=== PATIENT | male | born 1940 | race Caucasian/White ===

== ENCOUNTER → 2017-11-19 03:01 | Outpatient (CLI) | payer MEDICARE, OTHER, SELFPAY | PROVIDERS: PCP Internal Medicine; Visit Provider Dermatology | DX: C84.A0 Cutaneous T-cell lymphoma, unspecified, unspecified site (principal) | CPT/HCPCS: 96912 ==

== ENCOUNTER → 2017-11-22 04:18 | Outpatient (CLI) | payer MEDICARE, OTHER, SELFPAY | PROVIDERS: PCP Internal Medicine; Visit Provider Dermatology | DX: C84.A0 Cutaneous T-cell lymphoma, unspecified, unspecified site (principal) | CPT/HCPCS: 96912 ==

== ENCOUNTER → 2017-11-27 03:12 | Outpatient (CLI) | payer MEDICARE, OTHER, SELFPAY | PROVIDERS: PCP Internal Medicine; Visit Provider Dermatology | DX: C84.A0 Cutaneous T-cell lymphoma, unspecified, unspecified site (principal) | CPT/HCPCS: 96912 ==

== ENCOUNTER → 2017-12-05 02:00 | Outpatient (CLI) | payer MEDICARE, OTHER, SELFPAY | PROVIDERS: PCP Internal Medicine; Visit Provider Dermatology | DX: C84.A0 Cutaneous T-cell lymphoma, unspecified, unspecified site (principal) | CPT/HCPCS: 96912 ==

== ENCOUNTER → 2017-12-11 03:47 | Outpatient (CLI) | payer MEDICARE, OTHER, SELFPAY | PROVIDERS: PCP Internal Medicine; Visit Provider Dermatology | DX: C84.A0 Cutaneous T-cell lymphoma, unspecified, unspecified site (principal) | CPT/HCPCS: 96912 ==

== ENCOUNTER 2017-12-18 03:07 | Outpatient (CLI) | payer MEDICARE, OTHER, SELFPAY | END 2017-12-18 03:27 | PROVIDERS: PCP Internal Medicine; Visit Provider Dermatology | DX: C84.A0 Cutaneous T-cell lymphoma, unspecified, unspecified site (principal) | CPT/HCPCS: 96912 ==

== ENCOUNTER 2017-12-25 02:12 | Outpatient (CLI) | payer MEDICARE, OTHER, SELFPAY | END 2017-12-25 02:32 | PROVIDERS: PCP Internal Medicine; Visit Provider Dermatology | DX: C84.A0 Cutaneous T-cell lymphoma, unspecified, unspecified site (principal) | CPT/HCPCS: 96912 ==

== ENCOUNTER 2018-01-02 03:44 | Outpatient (CLI) | payer MEDICARE, OTHER, SELFPAY | END 2018-01-02 04:04 | PROVIDERS: PCP Internal Medicine; Visit Provider Dermatology | DX: C84.A0 Cutaneous T-cell lymphoma, unspecified, unspecified site (principal) | CPT/HCPCS: 96912 ==

== ENCOUNTER 2018-01-08 02:16 | Outpatient (CLI) | payer MEDICARE, OTHER, SELFPAY | END 2018-01-08 02:36 | PROVIDERS: PCP Internal Medicine; Visit Provider Dermatology | DX: C84.A0 Cutaneous T-cell lymphoma, unspecified, unspecified site (principal) | CPT/HCPCS: 96912 ==

== ENCOUNTER 2018-01-16 02:17 | Outpatient (CLI) | payer MEDICARE, OTHER, SELFPAY | END 2018-01-16 02:37 | PROVIDERS: PCP Internal Medicine; Visit Provider Dermatology | DX: C84.A0 Cutaneous T-cell lymphoma, unspecified, unspecified site (principal) | CPT/HCPCS: 96912 ==

== ENCOUNTER 2018-01-22 02:04 | Outpatient (CLI) | payer MEDICARE, OTHER, SELFPAY | END 2018-01-22 02:24 | PROVIDERS: PCP Internal Medicine; Visit Provider Dermatology | DX: C84.A0 Cutaneous T-cell lymphoma, unspecified, unspecified site (principal) | CPT/HCPCS: 96912 ==

== ENCOUNTER 2018-02-05 01:22 | Outpatient (CLI) | payer MEDICARE, OTHER, SELFPAY | END 2018-02-05 01:42 | PROVIDERS: PCP Internal Medicine; Visit Provider Dermatology | DX: C84.A0 Cutaneous T-cell lymphoma, unspecified, unspecified site (principal) | CPT/HCPCS: 96912 ==

== ENCOUNTER 2018-02-13 02:17 | Outpatient (CLI) | payer MEDICARE, OTHER, SELFPAY | END 2018-02-13 02:37 | PROVIDERS: PCP Internal Medicine; Visit Provider Dermatology | DX: R69 Illness, unspecified (principal) ==

== ENCOUNTER 2018-02-19 03:05 | Outpatient (CLI) | payer MEDICARE, OTHER, SELFPAY | END 2018-02-19 03:25 | PROVIDERS: PCP Internal Medicine; Visit Provider Dermatology | DX: C84.A0 Cutaneous T-cell lymphoma, unspecified, unspecified site (principal) | CPT/HCPCS: 96912 ==

== ENCOUNTER 2018-03-05 10:34 | Outpatient (CLI) | payer MEDICARE, OTHER, SELFPAY | END 2018-03-05 10:54 | LOC: PRC 10:34 → PUVA 10:37 | PROVIDERS: PCP Internal Medicine; Visit Provider Dermatology | DX: C84.A0 Cutaneous T-cell lymphoma, unspecified, unspecified site (principal) | CPT/HCPCS: 96912 ==

== ENCOUNTER 2018-03-19 01:33 | Outpatient (CLI) | payer MEDICARE, OTHER, SELFPAY | END 2018-03-19 01:53 | PROVIDERS: PCP Internal Medicine; Visit Provider Dermatology | DX: C84.A0 Cutaneous T-cell lymphoma, unspecified, unspecified site (principal) | CPT/HCPCS: 96912 ==

== ENCOUNTER 2018-04-02 02:37 | Outpatient (CLI) | payer MEDICARE, OTHER, SELFPAY | END 2018-04-02 02:57 | PROVIDERS: PCP Internal Medicine; Visit Provider Dermatology | DX: R69 Illness, unspecified (principal) | CPT/HCPCS: 96912 ==

== ENCOUNTER 2018-04-15 02:25 | Outpatient (CLI) | payer MEDICARE, OTHER, SELFPAY | END 2018-04-15 02:45 | PROVIDERS: PCP Internal Medicine; Visit Provider Dermatology | DX: C84.A0 Cutaneous T-cell lymphoma, unspecified, unspecified site (principal) | CPT/HCPCS: 96912 ==

== ENCOUNTER 2018-04-29 02:41 | Outpatient (CLI) | payer MEDICARE, OTHER, SELFPAY | END 2018-04-29 03:01 | PROVIDERS: PCP Internal Medicine; Visit Provider Dermatology | DX: C84.A0 Cutaneous T-cell lymphoma, unspecified, unspecified site (principal) | CPT/HCPCS: 96912 ==

== ENCOUNTER 2018-05-13 11:06 | Outpatient (CLI) | payer MEDICARE, OTHER, SELFPAY | END 2018-05-13 11:26 | PROVIDERS: PCP Internal Medicine; Visit Provider Dermatology | DX: C84.A0 Cutaneous T-cell lymphoma, unspecified, unspecified site (principal); Z53.8 Procedure and treatment not carried out for other reasons ==

== ENCOUNTER 2018-05-20 02:23 | Outpatient (CLI) | payer MEDICARE, OTHER, SELFPAY | END 2018-05-20 02:43 | PROVIDERS: PCP Internal Medicine; Visit Provider Dermatology | DX: C84.A0 Cutaneous T-cell lymphoma, unspecified, unspecified site (principal) | CPT/HCPCS: 96912 ==

== ENCOUNTER 2018-06-10 02:06 | Outpatient (CLI) | payer MEDICARE, OTHER, SELFPAY | END 2018-06-10 02:26 | PROVIDERS: PCP Internal Medicine; Visit Provider Dermatology | DX: C84.A0 Cutaneous T-cell lymphoma, unspecified, unspecified site (principal) | CPT/HCPCS: 96912 ==

== ENCOUNTER 2018-07-01 01:56 | Outpatient (CLI) | payer MEDICARE, OTHER, SELFPAY | END 2018-07-01 02:16 | PROVIDERS: PCP Internal Medicine; Visit Provider Dermatology | DX: C84.A0 Cutaneous T-cell lymphoma, unspecified, unspecified site (principal) | CPT/HCPCS: 96912 ==

== ENCOUNTER 2018-07-22 02:24 | Outpatient (CLI) | payer MEDICARE, OTHER, SELFPAY | END 2018-07-22 02:44 | PROVIDERS: PCP Internal Medicine; Visit Provider Dermatology | DX: C84.A0 Cutaneous T-cell lymphoma, unspecified, unspecified site (principal) | CPT/HCPCS: 96912 ==

== ENCOUNTER 2018-08-29 00:56 | Outpatient (CLI) | payer MEDICARE, OTHER, SELFPAY ==
--- NOTE | 2018-08-29 09:56 | DI.MRI_ITS ---
SYMPTOM/DIAGNOSIS: LUMBAR SPINAL STENOSIS WITH NEUROGENIC CLAUDICATION LUMBOSACRAL SPINE MRI: MRI examination of the lumbosacral spine was performed according to the usual protocol. The examination is compared with previous examination of 10/04/16. Note is made of a right convex lumbar scoliosis. There is disc space loss of height throughout the lumbar region. The conus medullaris appears intact and the lower thoracic spinal canal appears well maintained. Tiny nodular focus is noted associated with the conus at the T 12 level, unchanged from the previous examination. This is seen only on the sagittal images and measures roughly 6 mm. in diameter. The lack of changeover operator a 2 year period would suggest that this is a benign finding, etiologies could include Schwannoma or other benign neural tumor. At the L 1-2 level, there is mild decrease in AP diameter of the spinal canal and there is mild narrowing of the left lateral recess secondary to facet and endplate hypertrophy. At the L 2-3 level, a previously noted left sided disc herniation is again noted which is less prominent than on the previous examination. This projects below the disc level as previously noted. At L 3-4, there is borderline central canal spinal stenosis with no disc herniation. At L 4-5, there is borderline central canal spinal stenosis without evidence of disc herniation. At L 5-S 1, there is no evidence of disc herniation or central canal spinal stenosis. Neural foramina appear fairly well maintained throughout. Apart from the aforementioned decreased prominence of the left sided disc herniation/extrusion at L 2-3, there has been no other significant change in appearance. CONCLUSION: Multi level facet and endplate hypertrophy. Interval decrease in size of left sided disc herniation/extrusion at L 2-3 since 10/04/16. Incidental 6 mm. indeterminate nodule of the conus at the T 12 level as described above, this appears stable. Additional evaluation with full MR evaluation of the lower thoracic spine including post contrast imaging could be obtained if clinically appropriate.
== END 2018-08-29 01:16 ==
PROVIDERS: PCP Internal Medicine; Visit Provider Nurse Practitioner Family
DX: M48.07 Spinal stenosis, lumbosacral region (principal); M47.817 Spondylosis without myelopathy or radiculopathy, lumbosacral region; M51.26 Other intervertebral disc displacement, lumbar region
CPT/HCPCS: 72148

== ENCOUNTER 2018-09-24 11:26 | Outpatient (REF) | payer MEDICARE, OTHER, SELFPAY ==
[2018-09-24 18:33] LABS: Anion Gap 10.1 mmol/L (3-11); BUN 22 mg/dL (7-18); CO2 26.9 mmol/L (21.0-32.0); Calcium 9.3 mg/dL (8.5-10.1); Calculated LDL 88; Chloride 103 mmol/L (98-107); Cholesterol 164 mg/dL (50-200); Estimated GFR 58.86 (mL/min/1.73m2); Glucose 93 mg/dL (70-100); HDL Cholesterol 67 mg/dL (40-60); Potassium 4.1 mmol/L (3.5-5.1); Sodium 140 mmol/L (136-145); Triglyceride 47 mg/dL (30-150)
== END 2018-09-24 11:46 ==
LOC: LBO 11:26
PROVIDERS: PCP Internal Medicine; Visit Provider Internal Medicine
DX: E78.00 Pure hypercholesterolemia, unspecified (principal); I10 Essential (primary) hypertension
CPT/HCPCS: 80048; 80061; 83721

== ENCOUNTER 2018-09-25 09:19 | Outpatient (CLI) | payer MEDICARE, OTHER, SELFPAY ==
--- NOTE | 2018-09-25 06:00 | DI.RAD_ITS ---
SYMPTOM/DIAGNOSIS: LUMBAR RADICULOPATHY, LUMBAR EPIDURAL STEROID INJECTION C-ARM: Fluoroscopy Time: 61.0sec, 17.83mgy Fluoroscopy was utilized by Dr. Zendejas during the performance of a lumbar epidural steroid injection. Please refer to the procedure report for complete details.
[2018-09-25 09:54] VITALS: BP 126/71; PULSE 67; RESP 16; TEMP 36.4; O2SAT 96
[2018-09-25] MEDS: Omnipaque 240 MG/ML 50 ML BTL IJ (10:31)
--- NOTE | 2018-09-25 10:31 | PDOC.PAIN ---
Pain Clinic Procedure Note Current Active Problems Problem Status Onset Spinal stenosis Chronic Epidural Steroid Injection Procedure Note COMMENTS: patient has back and right lower extremity pain. MATTHEW STILL has been referred to the [facility] for lumbar epidural steroid injection. The patient was greeted by the nurse who verified patients name and . Patient was then taken to the fluoroscopy suite. The patient was interviewed and the medial record reviewed. There were no medical, pharmacologic, radiographic, or other structural contraindications to attempting fluoroscopically guided lumbar epidural steroid injection. Risks and expected side effects as well as potential benefits of the procedure were reviewed and voiced concerns expressed. The patient consent form was signed and witnessed. Standard patient time-out procedure was performed. The patient was placed in the prone position on the fluoroscopy table and automated blood pressure cuff and pulse oximeter applied. The skin entry point for entering/approaching the epidural space by a {L5-S1} and marked. Following thorough chlorhexadine preparation of the skin and draping and 1% lidocaine infiltration of the skin entry point and subcutaneous tissues, a 17 gauge Touhy needle was placed under fluoroscopic guidance and with loss of resistance technique into the epidural space. Needle tip placement and depth were aided and confirmed by fluoroscopy. There was no paresthesia or return of blood or CSF through the needle. 1 cc's of Omnipaque 240 was injected with clear epidural spread confirmed with fluoroscopy. 80mg depomedrol was injected. There was not any unusual discomfort expressed by MATTHEW STILL. Patient's vital signs were stable throughout the procedure and were as recorded in nursing records. Follow up plans and appointments were discussed with patient. Post procedure instruction was given as documented in nursing records and having met discharge criteria and was discharged from the [facility]. COMMENTS: follow-up as needed. He gets good relief that lasts for several months it can be repeated otherwise he will follow-up with Kathryn have the office
[2018-09-25] MEDS: methylPREDNISolone ACETATE 40 MG/ML VIAL IJ (10:32)
[2018-09-25 10:42] VITALS: BP 144/90; PULSE 61; RESP 14; O2SAT 98
== END 2018-09-25 09:39 ==
PROVIDERS: PCP Internal Medicine; Visit Provider Anesthesiology Pain Medicine
DX: M48.061 Spinal stenosis, lumbar region without neurogenic claudication (principal)
CPT/HCPCS: 62323; 72100; J1030; Q9967

== ENCOUNTER 2018-12-05 12:00 | Outpatient (CLI) | payer MEDICARE, OTHER, SELFPAY ==
--- NOTE | 2018-12-05 06:00 | DI.RAD_ITS ---
SYMPTOM/DIAGNOSIS: LUMBAR EPIDURAL STEROID INJECTION, LUMBAR RADICULOPATHY C-ARM: Fluoroscopy Time: 15.2 seconds Fluoroscopy was utilized by Dr. Nation during the performance of a lumbar epidural steroid injection. Please refer to the procedure report for complete details.
[2018-12-05 12:06] VITALS: BP 127/76; PULSE 69; RESP 16; TEMP 36.3; O2SAT 96
[2018-12-05] MEDS: Omnipaque 240 MG/ML 50 ML BTL IJ (12:50)
[2018-12-05] MEDS: methylPREDNISolone ACETATE 40 MG/ML VIAL IM (12:52)
[2018-12-05 12:54] VITALS: BP 132/78; PULSE 73; RESP 19; O2SAT 97
--- NOTE | 2018-12-05 13:10 | PDOC.PAIN_ITS ---
Pain Clinic Procedure Note Current Active Problems Problem Status Onset Lumbar radicular pain Lumbar Epidural Steroid Injection Procedure Note COMMENTS: Great relief with previous LESIs MATTHEW STILL has been referred to the [facility] for lumbar epidural steroid injection. The patient was greeted by the nurse who verified patients name and . Patient was then taken to the fluoroscopy suite. The patient was interviewed and the medial record reviewed. There were no medi jessica, pharmacologic, radiographic, or other structural contraindications to attempting fluoroscopically guided lumbar epidural steroid injection. Risks and expected side effects as well as potential benefits of the procedure were reviewed and voiced concerns expressed. The patient consent form was signed and witnessed. Standard patient time-out procedure was performed. The patient was placed in the prone position on the fluoroscopy table and automated blood pressure cuff and pulse oximeter applied. The skin entry point for entering/approaching the epidural space at L5-S1 on the right and marked. Following thorough chlorhexadine preparation of the skin and draping and 1% lidocaine infiltration of the skin entry point and subcutaneous tissues, a 18 g auge Touhy needle was placed under fluoroscopic guidance and with loss of resistance technique into the epidural space. Needle tip placement and depth were aided and confirmed by fluoroscopy. There was no paresthesia or return of blood or CSF through the needle. 1 cc's of Omnipaque 240 was injected with clear epidural spread confirmed with fluoroscopy. 80mg depomedrol was injected. There was not any unusual discomfort expressed by MATTHEW STILL. Patient's vital signs were stable throughout the procedure and were as recorded in nursing records. Follow up plans and appointments were discussed with patient. Post procedure instruction was given as documented in nursing records and having met discharge criteria and was discharged from the [facility]. COMMENTS: If this procedure is helpful, it can be completed up to 3 times per 12 months.
== END 2018-12-05 12:20 ==
PROVIDERS: PCP Internal Medicine; Visit Provider Preventive Medicine Occupational Medicine
DX: M54.16 Radiculopathy, lumbar region (principal)
CPT/HCPCS: 62323; 72100; J1030; Q9967

== ENCOUNTER → 2019-02-25 10:45 | Outpatient (BNVA) | payer MEDICARE, OTHER, SELFPAY | PROVIDERS: PCP Internal Medicine; Referring Provider Internal Medicine; Visit Provider Nurse Practitioner Gerontology | DX: N40.1 Benign prostatic hyperplasia with lower urinary tract symptoms (principal); R39.15 Urgency of urination; R35.1 Nocturia; R35.0 Frequency of micturition; Z80.42 Family history of malignant neoplasm of prostate; I10 Essential (primary) hypertension | CPT/HCPCS: 51798; 99204; 99215 ==

== ENCOUNTER 2019-05-06 08:46 | Outpatient (CLI) | payer MEDICARE, OTHER, SELFPAY ==
--- NOTE | 2019-05-06 08:47 | PDOC.PAIN ---
Pain Clinic Procedure Note Procedure Note Procedure Note: Lumbar Epidural Steroid Injection Procedure Note Pre-operative diagnosis: lumbar radiculopathy Post-operative diagnosis: same as above Comment: patient has had sustained pain relief from prior lumbar epidural steroid injections, he presents for repeat LESI. MATTHEW STILL has been referred to the [facility] for lumbar epidural steroid injection. The patient was greeted by the nurse who verified patients name and . Patient was then taken to the fluoroscopy suite. The patient was interviewed and the medial record reviewed. There were no medical, pharmacologic, radiographic, or other structural contraindications to attempting fluoroscopically guided lumbar epidural steroid injection. Risks and expected side effects as well as potential benefits of the procedure were reviewed and voiced concerns expressed. The patient consent form was signed and witnessed. Standard patient time-out procedure was performed. The patient was placed in the prone position on the fluoroscopy table and automated blood pressure cuff and pulse oximeter applied. The skin entry point for entering/approaching the epidural space L5-S1 and marked. Following thorough chlorhexadine preparation of the skin and draping and 1% lidocaine infiltration of the skin entry point and subcutaneous tissues, a 18 gauge Touhy needle was placed under fluoroscopic guidance and with loss of resistance technique into the epidural space. Needle tip placement and depth were aided and confirmed by fluoroscopy. There was no paresthesia or return of blood or CSF through the needle. 1 cc's of Omnipaque 240 was injected with clear epidural spread confirmed with fluoroscopy. 80mg depomedrol was injected. This was followed by 0.5cc of preservative free 1% lidocaine and 1cc of preservative free normal saline. There was not any unusual discomfort expressed by MATTHEW STILL. Patient's vital signs were stable throughout the procedure and were as recorded in nursing records. Follow up plans and appointments were discussed with patient. Post procedure instruction was given as documented in nursing records and having met discharge criteria and was discharged from the [facility]. COMMENTS: If this procedure is helpful, it can be completed up to 3 times per 12 months. I personally performed the entire procedure. Curt Carias MD Pain Management
[2019-05-06 08:56] VITALS: BP 129/74; PULSE 64; RESP 18; TEMP 36.1; O2SAT 99
[2019-05-06 09:28] VITALS: BP 141/85; PULSE 61; RESP 16; O2SAT 98
[2019-05-06] MEDS: methylPREDNISolone ACETATE 80 MG/ML VIAL IJ (09:36)
[2019-05-06] MEDS: Omnipaque 240 MG/ML 50 ML BTL IJ (09:36)
--- NOTE | 2019-05-06 10:19 | DI.RAD_ITS ---
EXAM: XR PAIN CLINIC LUMBAR SP 2V CLINICAL HISTORY: Dx: Lumbar Radiculopathy TECHNIQUE: 2D and realtime digital imaging was performed. Fluoroscopy was provided in the OR COMPARISON: No exams were available for comparison FINDINGS: C-arm fluoroscopy was utilized by Dr. Carias during reported epidural steroid injection. Hard copy shows midline injection at the L5-S1 level in the epidural space Fluoro time: 16.4 sec. Fluoro dose 5.87 mGy IMPRESSION:
== END 2019-05-06 09:06 ==
PROVIDERS: PCP Internal Medicine; Visit Provider Internal Medicine
DX: M54.16 Radiculopathy, lumbar region (principal)
CPT/HCPCS: 62321; 72100; J1040; Q9967

== ENCOUNTER → 2019-05-16 08:43 | Outpatient (BNVA) | payer MEDICARE, OTHER, SELFPAY | PROVIDERS: PCP Internal Medicine; Referring Provider Internal Medicine; Visit Provider Urology | DX: R35.0 Frequency of micturition (principal); N40.0 Benign prostatic hyperplasia without lower urinary tract symptoms | CPT/HCPCS: 99213 ==

== ENCOUNTER 2019-05-16 10:53 | Outpatient (CLI) | payer MEDICARE, OTHER, SELFPAY ==
[2019-05-16 11:07] LABS: Bilirubin Negative (Negative); Blood Negative (Negative); Clarity Clear (Clear); Glucose Negative (Negative); Ketones Negative (Negative); Leukocyte Esterase Negative (Negative); Nitrite Negative (Negative); Specific Gravity 1.025 (1.005-1.025); Urobilinogen 0.2 EU/dL (Up TO 0.2)
== END 2019-05-16 11:13 ==
PROVIDERS: PCP Internal Medicine; Visit Provider Urology
DX: R39.9 Unspecified symptoms and signs involving the genitourinary system (principal)
CPT/HCPCS: 99213; 81003

== ENCOUNTER 2019-10-14 08:44 | Outpatient (CLI) | payer MEDICARE, OTHER, SELFPAY ==
[2019-10-14 08:51] VITALS: BP 138/81; PULSE 61; RESP 17; TEMP 36.2; O2SAT 98
[2019-10-14] MEDS: methylPREDNISolone ACETATE 80 MG/ML VIAL IJ (09:25)
[2019-10-14] MEDS: Omnipaque 240 MG/ML 50 ML BTL IJ (09:25)
[2019-10-14 09:28] VITALS: BP 147/86; PULSE 61; RESP 18; O2SAT 98
--- NOTE | 2019-10-14 09:29 | PDOC.PAIN ---
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 He has received sustained pain relief from prior lumbar epidural steroid injections and he is here for a repeat injection. Levon Carter has been referred to the [facility] for lumbar epidural steroid injection. The patient was greeted by the nurse who verified patients name and . Patient was then taken to the fluoroscopy suite. The patient was interviewed and the medial record reviewed. There were no medical, pharmacologic, radiographic, or other structural contraindications to attempting fluoroscopically guided lumbar epidural steroid injection. Risks and expected side effects as well as potential benefits of the procedure were reviewed and voiced concerns expressed. The patient consent form was signed and witnessed. Standard patient time-out procedure was performed. The patient was placed in the prone position on the fluoroscopy table and automated blood pressure cuff and pulse oximeter applied. The skin entry point for entering/approaching the epidural space by a L5-S1 and marked. Following thorough chlorhexadine preparation of the skin and draping and 1% lidocaine infiltration of the skin entry point and subcutaneous tissues, a 18 gauge Touhy needle was placed under fluoroscopic guidance and with loss of resistance technique into the epidural space. Needle tip placement and depth were aided and confirmed by fluoroscopy. There was no paresthesia or return of blood or CSF through the needle. 1 cc's of Omnipaque 240 was injected with clear epidural spread confirmed with fluoroscopy. 80mg depomedrol was injected. This is followed by 0.5cc of preservative free 1% lidocaine and 1cc of preservatie free normal saline. There was not any unusual discomfort expressed by Levon Carter. Patient's vital signs were stable throughout the procedure and were as recorded in nursing records. Follow up plans and appointments were discussed with patient. Post procedure instruction was given as documented in nursing records and having met discharge criteria and was discharged from the [facility]. COMMENTS: If this procedure is helpful, it can be completed up to 3 times per 12 months. I personally performed the entire procedure. Curt Carias MD Pain Management
--- NOTE | 2019-10-14 09:30 | DI.RAD_ITS ---
EXAM: XR PAIN CLINIC LUMBAR SP 2V CLINICAL HISTORY: Dx Lumbar Radiculopathy TECHNIQUE: 2D and realtime digital imaging was performed. CONTRAST MATERIAL: Refer to procedure report. COMPARISON: No exams were available for comparison FINDINGS: Fluoroscopy was provided for Dr. Carias during the performance of a lumbar epidural steroid injection. Please refer to the procedure report for complete details. Fluoro time: 23.1 seconds IMPRESSION:
== END 2019-10-14 09:04 ==
PROVIDERS: PCP Internal Medicine; Visit Provider Internal Medicine
DX: M54.16 Radiculopathy, lumbar region (principal)
CPT/HCPCS: 62323; 72100; J1040; Q9967

== ENCOUNTER 2019-10-23 01:18 | Outpatient (CLI) | payer MEDICARE, OTHER, SELFPAY ==
[2019-10-23 17:07] LABS: Anion Gap 10.6 mmol/L (3-11); BUN 27 mg/dL (7-18); CO2 25.4 mmol/L (21.0-32.0); CREATININE 1.23 mg/dL (0.70-1.30); Calcium 9.3 mg/dL (8.5-10.1); Calculated LDL 67 mg/dL (<100); Chloride 102 mmol/L (98-107); Cholesterol 156 mg/dL (<200); Estimated GFR 57.06 (mL/min/1.73m2); Glucose 93 mg/dL (74-106); HDL Cholesterol 80 mg/dL (40-60); Potassium 3.9 mmol/L (3.5-5.1); Sodium 138 mmol/L (136-145); Triglyceride 48 mg/dL (<150)
== END 2019-10-23 01:38 ==
PROVIDERS: PCP Internal Medicine; Visit Provider Internal Medicine
DX: I10 Essential (primary) hypertension (principal); E78.00 Pure hypercholesterolemia, unspecified
CPT/HCPCS: 36415; 80048; 80061

== ENCOUNTER 2020-02-24 12:45 | Outpatient (CLI) | payer MEDICARE, OTHER, SELFPAY ==
[2020-02-24 12:54] VITALS: BP 134/66; PULSE 60; RESP 20; TEMP 36.7; O2SAT 97
[2020-02-24] MEDS: methylPREDNISolone ACETATE 80 MG/ML VIAL IJ (13:26)
[2020-02-24] MEDS: Omnipaque 240 MG/ML 50 ML BTL IJ (13:30)
--- NOTE | 2020-02-24 13:32 | DI.RAD_ITS ---
EXAM: XR PAIN CLINIC LUMBAR SP 2V CLINICAL HISTORY: Dx: Lumbar Radiculopathy TECHNIQUE: 2D and realtime digital imaging was performed. CONTRAST MATERIAL: Refer to procedure report. COMPARISON: No exams were available for comparison FINDINGS: Fluoroscopy was provided for Dr. Carias during the performance of a lumbar epidural steroid injection. Please refer to the procedure report for complete details. Fluoro time: 35.2 seconds IMPRESSION:
--- NOTE | 2020-02-24 13:34 | PDOC.PAIN ---
Pain Clinic Procedure Note Procedure Note Procedure Note: Lumbar Epidural Steroid Injection Procedure Note pre-operative diagnosis: lumbar radiculopathy COMMENTS: patient reports 4 months and 1 week of excellent pain relief since his last lumbar epidural steroid injection. he is here for a repeat injection. MATTHEW STILL has been referred to the [facility] for lumbar epidural steroid injection. The patient was greeted by the nurse who verified patients name and . Patient was then taken to the fluoroscopy suite. The patient was interviewed and the medial record reviewed. There were no medical, pharmacologic, radiographic, or other structural contraindications to attempting fluoroscopically guided lumbar epidural steroid injection. Risks and expected side effects as well as potential benefits of the procedure were reviewed and voiced concerns expressed. The patient consent form was signed and witnessed. Standard patient time-out procedure was performed. The patient was placed in the prone position on the fluoroscopy table and automated blood pressure cuff and pulse oximeter applied. The skin entry point for entering/approaching the epidural space by a L5-S1 and marked. Following thorough chlorhexadine preparation of the skin and draping and 1% lidocaine infiltration of the skin entry point and subcutaneous tissues, a 18 gauge Touhy needle was placed under fluoroscopic guidance and with loss of resistance technique into the epidural space. Needle tip placement and depth were aided and confirmed by fluoroscopy. There was no paresthesia or return of blood or CSF through the needle. 1 cc's of Omnipaque 240 was injected with clear epidural spread confirmed with fluoroscopy. 80mg depomedrol was injected. There was not any unusual discomfort expressed by MATTHEW STILL. Patient's vital signs were stable throughout the procedure and were as recorded in nursing records. Follow up plans and appointments were discussed with patient. Post procedure instruction was given as documented in nursing records and having met discharge criteria and was discharged from the [facility]. COMMENTS: If this procedure is helpful, it can be completed up to 3 times per 12 months. Curt Carias MD Pain Management
[2020-02-24 13:38] VITALS: BP 137/81; PULSE 61; RESP 22; O2SAT 100
== END 2020-02-24 13:05 ==
PROVIDERS: PCP Internal Medicine; Visit Provider Internal Medicine
DX: M54.16 Radiculopathy, lumbar region (principal)
CPT/HCPCS: 62323; 72100; J1040; Q9967

== ENCOUNTER → 2020-06-11 07:56 | Outpatient (BNVA) | payer MEDICARE, OTHER, SELFPAY | PROVIDERS: PCP Internal Medicine; Referring Provider Internal Medicine; Visit Provider Urology | DX: N40.1 Benign prostatic hyperplasia with lower urinary tract symptoms (principal); R39.15 Urgency of urination | CPT/HCPCS: 81003; 99214 ==

== ENCOUNTER 2020-07-01 11:35 | Outpatient (CLI) | payer MEDICARE, OTHER, SELFPAY ==
--- NOTE | 2020-07-01 06:00 | DI.RAD_ITS ---
EXAM: XR PAIN CLINIC LUMBAR SP 2V CLINICAL HISTORY: Dx: Lumbar Radiculopathy TECHNIQUE: 2D and realtime digital imaging was performed. CONTRAST MATERIAL: None. COMPARISON: No exams were available for comparison FINDINGS: Fluoroscopy was provided during pain management therapy L5-S1 epidural injection. See procedure repo rt for further details. Fluoro time: 17.4 seconds Cumulative dose: 4.80 mGy IMPRESSION:
[2020-07-01 11:43] VITALS: BP 134/73; PULSE 58; RESP 17; TEMP 36.7; O2SAT 96
[2020-07-01] MEDS: methylPREDNISolone ACETATE 80 MG/ML VIAL IJ (12:13)
[2020-07-01] MEDS: Omnipaque 240 MG/ML 50 ML BTL IJ (12:13)
[2020-07-01 12:20] VITALS: BP 152/72; PULSE 66; RESP 18; O2SAT 98
--- NOTE | 2020-07-01 12:23 | PDOC.PAIN ---
Pain Clinic Procedure Note Procedure Note Procedure Note: Date of service: July 01, 2020 Lumbar Epidural Steroid Injection Procedure Note COMMENTS: He has done well with these in the past , 10/14/19, and 02/24/20), getting about 3-4 months of relief with each injection. I did review his 08/29/2018 lumbar spine MRI. His low back and leg pain is mostly right sided. Dx: Lumbosacral radiculopathy MATTHEW STILL has been referred to the [facility] for lumbar epidural steroid injection. The patient was greeted by the nurse who verified patients name and . Patient was then taken to the fluoroscopy suite. The patient was interviewed and the medial record reviewed. There were no medical, pharmacologic, radiographic, or other structural contraindications to attempting fluoroscopically guided lumbar epidural steroid injection. Risks and expected side effects as well as potential benefits of the procedure were reviewed and voiced concerns expressed. The patient consent form was signed and witnessed. Standard patient time-out procedure was performed. The patient was placed in the prone position on the fluoroscopy table and automated blood pressure cuff and pulse oximeter applied. The skin entry point for entering/approaching the epidural space at L5-S1 and marked. Following thorough chlorhexadine preparation of the skin and draping and 1% lidocaine infiltration of the skin entry point and subcutaneous tissues, a 18 gauge Touhy needle was placed under fluoroscopic guidance and with loss of resistance technique into the epidural space. Needle tip placement and depth were aided and confirmed by fluoroscopy. There was no paresthesia or return of blood or CSF through the needle. 1 cc's of Omnipaque 240 was injected with clear epidural spread confirmed with fluoroscopy. 80mg depomedrol was injected. There was not any unusual discomfort expressed by MATTHEW STILL. Patient's vital signs were stable throughout the procedure and were as recorded in nursing records. Follow up plans and appointments were discussed with patient. Post procedure instruction was given as documented in nursing records and having met discharge criteria and was discharged from the [facility]. COMMENTS: If this procedure is helpful, it can be completed up to 3 times per 12 months. Jameel Nation DO, MPH Pain Management
== END 2020-07-01 11:36 | disposition home or self-care (01) ==
PROVIDERS: PCP Internal Medicine; Visit Provider Preventive Medicine Occupational Medicine
DX: M54.17 Radiculopathy, lumbosacral region (principal)
CPT/HCPCS: 62323; 72100; J1040; Q9967

== ENCOUNTER 2020-10-19 08:47 | Outpatient (CLI) | payer MEDICARE, OTHER, SELFPAY ==
--- NOTE | 2020-10-19 07:00 | DI.RAD_ITS ---
Exam(s) XR PAIN CLINIC LUMBAR SP 2V EXAM: XR PAIN CLINIC LUMBAR SP 2V CLINICAL HISTORY: Dx: Lumbar Radiculopathy TECHNIQUE: 2D and realtime digital imaging was performed. CONTRAST MATERIAL: Refer to procedure report. COMPARISON: No exams were available for comparison FINDINGS: Fluoroscopy was provided for Dr. Carias during the performance of a lumbar epidural steroid injection. Please refer to the procedure report for complete details. Ka,r=5.15 mGy IMPRESSION:
--- NOTE | 2020-10-19 09:10 | PDOC.PAIN ---
Pain Clinic Procedure Note Procedure Note Procedure Note: Date of service: October 19, 2020 Lumbar Epidural Steroid Injection Procedure Note COMMENTS: patient has lumbar radiculopathy that has been managed with interval lumbar epidural steroid injections since 2019. Each LESI provides approximately 3-4 months of excellent pain relief and he receives no more than 3 injections per 12 months period. Most recent MRI L spine was done in 08/29/2018, and his symptoms has remained unchanged with back pain with radiating right leg pain. His last injection was in 06/2020. Pre-operative diagnosis: Lumbosacral radiculopathy Post-operative diagnosis: same as above MATTHEW STILL has been referred to the [facility] for lumbar epidural steroid injection. The patient was greeted by the nurse who verified patients name and . Patient was then taken to the fluoroscopy suite. The patient was interviewed and the medial record reviewed. There were no medical, pharmacologic, radiographic, or other structural contraindications to attempting fluoroscopically guided lumbar epidural steroid injection. Risks and expected side effects as well as potential benefits of the procedure were reviewed and voiced concerns expressed. The patient consent form was signed and witnessed. Standard patient time-out procedure was performed. The patient was placed in the prone position on the fluoroscopy table and automated blood pressure cuff and pulse oximeter applied. The skin entry point for entering/approaching the epidural space at L5-S1 and marked. Following thorough chlorhexadine preparation of the skin and draping and 1% lidocaine infiltration of the skin entry point and subcutaneous tissues, a 18 gauge Touhy needle was placed under fluoroscopic guidance and with loss of resistance technique into the epidural space. Needle tip placement and depth were aided and confirmed by fluoroscopy. There was no paresthesia or return of blood or CSF through the needle. 1 cc's of Omnipaque 240 was injected with clear epidural spread confirmed with fluoroscopy. 80mg depomedrol was injected. There was not any unusual discomfort expressed by MATTHEW STILL. Patient's vital signs were stable throughout the procedure and were as recorded in nursing records. Follow up plans and appointments were discussed with patient. Post procedure instruction was given as documented in nursing records and having met discharge criteria and was discharged from the [facility]. COMMENTS: If this procedure is helpful, it can be completed up to 3 times per 12 months. Pre-procedure vAS score 6/10, post-procedure VAS score 1/10 Curt Carias MD Pain Management
[2020-10-19 09:15] VITALS: BP 136/81; PULSE 57; RESP 18; TEMP 36.6; O2SAT 98
[2020-10-19] MEDS: methylPREDNISolone ACETATE 80 MG/ML VIAL IJ (09:41)
[2020-10-19] MEDS: Omnipaque 240 MG/ML 50 ML BTL IJ (09:41)
[2020-10-19 09:49] VITALS: BP 146/84; PULSE 57; RESP 16; O2SAT 99
== END 2020-10-19 08:48 | disposition home or self-care (01) ==
LOC: PC 08:48
PROVIDERS: PCP Internal Medicine; Visit Provider Internal Medicine
DX: M54.17 Radiculopathy, lumbosacral region (principal)
CPT/HCPCS: 62323; 72100; J1040; Q9967

== ENCOUNTER 2021-01-28 02:47 | Outpatient (CLI) | payer MEDICARE, OTHER, SELFPAY ==
[2021-01-28 17:03] LABS: Anion Gap 6.9 mmol/L (3-11); BUN 25 mg/dL (7-18); CO2 31.1 mmol/L (21.0-32.0); CREATININE 1.2 mg/dL (0.70-1.30); Calcium 9.2 mg/dL (8.5-10.1); Calculated LDL 77 mg/dL (<100); Chloride 103 mmol/L (98-107); Cholesterol 158 mg/dL (<200); Glucose 82 mg/dL (74-106); HDL Cholesterol 72 mg/dL (40-60); Sodium 141 mmol/L (136-145); Triglyceride 45 mg/dL (<150)
== END 2021-01-28 02:48 | disposition home or self-care (01) ==
LOC: LBO 02:47
PROVIDERS: PCP Internal Medicine; Visit Provider Internal Medicine
DX: E78.00 Pure hypercholesterolemia, unspecified (principal); I10 Essential (primary) hypertension
CPT/HCPCS: 36415; 80048; 80061

== ENCOUNTER 2021-03-17 08:32 | Outpatient (CLI) | payer MEDICARE, OTHER, SELFPAY ==
--- NOTE | 2021-03-17 06:00 | DI.RAD_ITS ---
Exam(s) XR PAIN CLINIC LUMBAR SP 2V EXAM: XR PAIN CLINIC LUMBAR SP 2V CLINICAL HISTORY: DX: lumbar radiculopathy TECHNIQUE: 2D and realtime digital imaging was performed. Radiologist not present. CONTRAST MATERIAL: None. COMPARISON: No exams were available for comparison FINDINGS: Fluoroscopy was provided for pain management therapy. Please refer to procedure report or details. Cumulative dose: Ka,r=6.06 mGy IMPRESSION: RADIATION DOSE DELIVERED:
[2021-03-17 08:41] VITALS: BP 134/82; PULSE 57; RESP 18; TEMP 36.5; O2SAT 99
[2021-03-17] MEDS: Omnipaque 240 MG/ML 50 ML BTL IJ (09:16)
[2021-03-17] MEDS: methylPREDNISolone ACETATE 80 MG/ML VIAL IJ (09:17)
--- NOTE | 2021-03-17 09:17 | PDOC.PAIN_ITS ---
Pain Clinic Procedure Note Procedure Note Procedure Note: Lumbar Epidural Steroid Injection Procedure Note COMMENTS: Pre-procedure pain VAS = 5/10. He has had this procedure numerous times over the past few years. He has had 2 of these in the past 12 months. He typically achieves 4-8 months of relief with each injection. DX: Lumbosacral radiculopathy Levon Carter has been referred to the [facility] for lumbar epidural steroid injection. The patient was greeted by the nurse who verified patients name and . Patient was then taken to the fluoroscopy suite. The patient was interviewed and the medial record reviewed. There were no medical, pharmacologic, radiographic, or other structural contraindications to attempting fluoroscopically guided lumbar epidural steroid injection. Risks and expected side effects as well as potential benefits of the procedure were reviewed and voiced concerns expressed. The patient consent form was signed and witnessed. Standard patient time-out procedure was performed. The patient was placed in the prone position on the fluoroscopy table and automated blood pressure cuff and pulse oximeter applied. The skin entry point for entering/approaching the epidural space at L5-S1 on the right and marked. Following thorough chlorhexadine preparation of the skin and draping and 1% lidocaine infiltration of the skin entry point and subcutaneous tissues, a 18 gauge Touhy needle was placed under fluoroscopic guidance and with loss of resistance technique into the epidural space. Needle tip placement and depth were aided and confirmed by fluoroscopy. There was no paresthesia or return of blood or CSF through the needle. 1 cc's of Omnipaque 240 was injected with clear epidural spread confirmed with fluoroscopy. 80mg depomedrol was injected. There was not any unusual discomfort expressed by Levon Carter. Patient's vital signs were stable throughout the procedure and were as recorded in nursing records. Follow up plans and appointments were discussed with patient. Post procedure instruction was given as documented in nursing records and having met discharge criteria and was discharged from the [facility]. COMMENTS: If this procedure is helpful, it can be completed up to 3 times per 12 months. Jameel Nation DO, MPH [facility] - Pain Management
[2021-03-17 09:22] VITALS: BP 160/77; PULSE 59; RESP 18; O2SAT 99
== END 2021-03-17 08:33 | disposition home or self-care (01) ==
LOC: PC 08:32
PROVIDERS: PCP Internal Medicine; Visit Provider Preventive Medicine Occupational Medicine
DX: M54.17 Radiculopathy, lumbosacral region (principal)
CPT/HCPCS: 62323; 72100; J1040; Q9967

== ENCOUNTER 2021-05-18 09:49 | Outpatient (CLI) | payer MEDICARE, OTHER, SELFPAY ==
--- NOTE | 2021-05-18 13:52 | DI.MRI_ITS ---
Exam(s) MR LUMBAR SPINE WO EXAM: MR LUMBAR SPINE WO CLINICAL HISTORY: SPINAL STENOSIS,M48.062,RADICULOPATHY. TECHNIQUE: Multiplanar multisequence MRI of the Lumbar spine was performed. COMPARISON: CR BILATERAL HIPS ADULT from 09/12/2016 MR MR lumbar spine wo from 08/29/2018 FINDINGS: There is red marrow reconversion and degenerative signal changes in the endplates. No suspicious bon y lesions are identified. There is multi level disc space narrowing with prominent endplate osteophy jamshid causing a dextroscoliosis. The osteophytes are more prominent toward the left side. T11-12 and T12-L1 levels are unremarkable. There is marked narrowing of the L1-2 disc osteophytes projecting circumferentially, greater on the r ight side which causes right neural foraminal narrowing. There is no significant central canal steno sis. At L2-3, there is again severe disc space narrowing with eccentrically oriented prominent osteophytes of projecting toward the left, causing left neural foraminal narrowing. There are facet degenerativ e changes combine to produce mild central canal stenosis. At L3-4, there are severe degenerative disc changes prominent osteophytes eccentric toward the left c ausing left neural foraminal narrowing. There are mild facet degenerative changes and ligamentous hy pertrophy causing mild central canal stenosis. At L4-5, there is moderate to severe loss of disc height and moderate endplate osteophytes. There ar e facet degenerative changes and ligamentous hypertrophy combine combining to produce mild to moderat e central canal stenosis. There is also bilateral neural foraminal encroachment. The L5-S1 disc shows small endplate osteophytes and extent and I disc bulging which is eccentric towa rd the right. There is right neural foraminal narrowing but no significant central canal stenosis. A small nodule is again noted at the are conus medullaris. Bilateral renal cysts are noted. IMPRESSION: multilevel degenerative disc changes and facet degenerative changes causing neural foraminal narrowi ng. Central canal stenosis is present at L4-5. There is no disc herniation at any level. DATA REPOSITORY:
== END 2021-05-18 10:09 ==
PROVIDERS: PCP Internal Medicine; Visit Provider Internal Medicine
DX: M48.062 Spinal stenosis, lumbar region with neurogenic claudication; M51.16 Intervertebral disc disorders with radiculopathy, lumbar region; M25.78 Osteophyte, vertebrae; M47.26 Other spondylosis with radiculopathy, lumbar region
CPT/HCPCS: 72148

== ENCOUNTER → 2021-06-14 09:58 | Outpatient (BNVA) | payer MEDICARE, OTHER, SELFPAY | PROVIDERS: PCP Internal Medicine; Referring Provider Internal Medicine; Visit Provider Urology | DX: N39.41 Urge incontinence (principal); N40.1 Benign prostatic hyperplasia with lower urinary tract symptoms; R35.1 Nocturia; N52.9 Male erectile dysfunction, unspecified; R35.0 Frequency of micturition | CPT/HCPCS: 81003; 99214 ==

== ENCOUNTER 2021-06-14 16:27 | Outpatient (REF) | payer MEDICARE, OTHER, SELFPAY ==
[2021-06-21 10:06] LABS: Testosterone, Total 435 ng/dL (240-950)
== END 2021-06-14 16:28 | disposition home or self-care (01) ==
LOC: LBN 16:27
PROVIDERS: PCP Internal Medicine; Visit Provider Urology
DX: N52.9 Male erectile dysfunction, unspecified (principal); R35.1 Nocturia; N39.41 Urge incontinence; N40.1 Benign prostatic hyperplasia with lower urinary tract symptoms
CPT/HCPCS: 84403; 87077; 87086; 87186

== ENCOUNTER → 2021-06-23 11:21 | Outpatient (BNVA) | payer MEDICARE, OTHER, SELFPAY | PROVIDERS: PCP Internal Medicine; Referring Provider Internal Medicine; Visit Provider Urology | DX: R35.0 Frequency of micturition (principal); N39.0 Urinary tract infection, site not specified | CPT/HCPCS: 81003; 99213 ==

== ENCOUNTER → 2021-08-09 10:23 | Outpatient (BNVA) | payer MEDICARE, OTHER, SELFPAY | PROVIDERS: PCP Internal Medicine; Referring Provider Internal Medicine; Visit Provider Urology | DX: N40.1 Benign prostatic hyperplasia with lower urinary tract symptoms (principal); R35.0 Frequency of micturition; N39.41 Urge incontinence; R35.1 Nocturia | CPT/HCPCS: 81003; 99213 ==

== ENCOUNTER → 2021-09-27 14:19 | Outpatient (BNVA) | payer MEDICARE, OTHER, SELFPAY | PROVIDERS: PCP Internal Medicine; Referring Provider Internal Medicine; Visit Provider Urology | DX: R35.0 Frequency of micturition (principal); N39.41 Urge incontinence; N40.1 Benign prostatic hyperplasia with lower urinary tract symptoms; R35.1 Nocturia | CPT/HCPCS: 51798; 81003; 99214 ==

== ENCOUNTER 2021-10-26 12:31 | Outpatient (CLI) | payer MEDICARE, OTHER, SELFPAY ==
[2021-10-26 12:42] VITALS: BP 127/78; PULSE 53; RESP 20; TEMP 36.5; O2SAT 97
--- NOTE | 2021-10-26 13:09 | DI.RAD_ITS ---
Exam(s) XR PAIN CLINIC LUMBAR SP 2V EXAM: XR PAIN CLINIC LUMBAR SP 2V CLINICAL HISTORY: Dx: Lumbar Radiculopathy TECHNIQUE: 2D and realtime digital imaging was performed. Radiologist not present. CONTRAST MATERIAL: None. COMPARISON: No exams were available for comparison FINDINGS: Fluoroscopy was provided for pain management therapy. Please refer to procedure report or details. Cumulative dose: Ka,r=5.32 mGy IMPRESSION: RADIATION DOSE DELIVERED:
[2021-10-26] MEDS: methylPREDNISolone ACETATE 80 MG/ML VIAL IJ (13:14)
[2021-10-26] MEDS: Omnipaque 240 MG/ML 50 ML BTL IJ (13:15)
[2021-10-26 13:16] VITALS: BP 135/80; PULSE 53; RESP 22; O2SAT 97
--- NOTE | 2021-10-26 13:18 | PDOC.PAIN_ITS ---
Pain Clinic Procedure Note Procedure Note Procedure Note: Lumbar Epidural Steroid Injection Procedure Note COMMENTS:He has done well with this procedure in the past. This procedure has allowed him to stay active. The pain is just about even, with a little more to the right. Dx: Lumbosacral radiculopathy Pre-procedure pain VAS was 7/10. Levon Carter has been referred to the [facility] for lumbar epidural steroid injection. The patient was greeted by the nurse who verified patients name and . Patient was then taken to the fluoroscopy suite. The patient was interviewed and the medial record reviewed. There were no medical, pharmacologic, radiographic, or other structural contraindications to attempting fluoroscopically guided lumbar epidural steroid injection. Risks and expected side effects as well as potential benefits of the procedure were revie wed and voiced concerns expressed. The patient consent form was signed and witnessed. Standard patient time-out procedure was performed. The patient was placed in the prone position on the fluoroscopy table and automated blood pressure cuff and pulse oximeter applied. The skin entry point for entering/approaching the epidural space by a L5-S1 and marked. Following thorough chlorhexadine preparation of the skin and draping and 1% lidocaine infiltration of the skin entry point and subcutaneous tissues, a 18 gauge Touhy needle was placed under fluoroscopic guidance and with loss of resistance technique into the epidural space. Needle tip placement and depth were aided and confirmed by fluoroscopy. There was no paresthesia or return of blood or CSF th rough the needle. 1 cc's of Omnipaque 240 was injected with clear epidural spread confirmed with fluoroscopy. 80mg depomedrol was injected. There was not any unusual discomfort expressed by Levon Carter. Patient's vital signs were stable throughout the procedure and were as recorded in nursing records. Follow up plans and appointments were discussed with patient. Post procedure instruction was given as documented in nursing records and having met discharge criteria and was discharged from the Pain Management Center. COMMENTS: If this procedure is helpful, it can be completed up to 3 times per 12 months. Post-procedure pain VAS was 1/10. Jameel Nation DO, MPH [facility]-Pain Management [facility]-Center for Pain Management
== END 2021-10-26 12:32 | disposition home or self-care (01) ==
LOC: PC 12:32
PROVIDERS: PCP Internal Medicine; Visit Provider Preventive Medicine Occupational Medicine
DX: M54.17 Radiculopathy, lumbosacral region (principal)
CPT/HCPCS: 62323; 72100; J1040; Q9967

== ENCOUNTER → 2021-10-27 11:22 | Outpatient (BNVA) | payer MEDICARE, OTHER, SELFPAY | PROVIDERS: PCP Internal Medicine; Referring Provider Internal Medicine; Visit Provider Urology | DX: N40.1 Benign prostatic hyperplasia with lower urinary tract symptoms (principal); R35.1 Nocturia; N39.41 Urge incontinence; R35.0 Frequency of micturition | CPT/HCPCS: 81003; 99214 ==

== ENCOUNTER 2021-11-07 03:36 | Outpatient (CLI) | payer MEDICARE, OTHER, SELFPAY ==
[2021-11-07 09:13] LABS: BUN 25 mg/dL (7-18); CREATININE 1.3 mg/dL (0.70-1.30); Calcium 8.9 mg/dL (8.5-10.1); Calculated LDL 69 mg/dL (<100); Chloride 104 mmol/L (98-107); Cholesterol 155 mg/dL (<200); Estimated GFR 53.25 (mL/min/1.73m2); Glucose 94 mg/dL (74-106); HDL Cholesterol 80 mg/dL (40-60); Potassium 3.9 mmol/L (3.5-5.1); Sodium 141 mmol/L (136-145); Triglyceride 30 mg/dL (<150)
== END 2021-11-07 03:37 | disposition home or self-care (01) ==
LOC: LBO 03:37
PROVIDERS: PCP Internal Medicine; Referring Provider Internal Medicine; Visit Provider Internal Medicine
DX: I10 Essential (primary) hypertension (principal); E78.00 Pure hypercholesterolemia, unspecified
CPT/HCPCS: 36415; 80048; 80061

== ENCOUNTER 2021-11-16 15:45 | Outpatient (CLI) | payer MEDICARE, OTHER, SELFPAY ==
[2021-11-16 14:00] LABS: Bilirubin Negative (Negative); Blood Trace-lysed (Negative); Clarity Sl Cloudy (Clear); Glucose Negative (Negative); Ketones Negative (Negative); Leukocyte Esterase Small (Negative); Nitrite Negative (Negative); Urobilinogen 0.2 EU/dL (Up TO 0.2); pH 5.5 (5-8)
[2021-11-16 14:09] LABS: Bacteria Few HPF (Negative); C & S Indicated? C&S Done As Ordered; Casts Negative LPF (Negative); Crystals Negative HPF (Negative); Epithelial Cells Rare HPF (Negative); Mucus Negative (Negative)
== END 2021-11-16 15:46 | disposition home or self-care (01) ==
LOC: LBO 15:46
PROVIDERS: PCP Internal Medicine; Visit Provider Nurse Practitioner Gerontology
DX: R35.0 Frequency of micturition (principal); R30.0 Dysuria; N39.41 Urge incontinence
CPT/HCPCS: 81003; 81015; 87086

== ENCOUNTER → 2021-12-23 07:52 | Outpatient (BNVA) | payer MEDICARE, OTHER, SELFPAY | PROVIDERS: PCP Internal Medicine; Referring Provider Internal Medicine; Visit Provider Urology | DX: N40.1 Benign prostatic hyperplasia with lower urinary tract symptoms (principal); R35.1 Nocturia; R35.0 Frequency of micturition; R30.0 Dysuria; N39.41 Urge incontinence | CPT/HCPCS: 51798; 81003; 99214 ==

== ENCOUNTER 2021-12-23 16:38 | Outpatient (REF) | payer MEDICARE, OTHER, SELFPAY | END 2021-12-23 16:39 | disposition home or self-care (01) | LOC: LBN 16:38 | PROVIDERS: PCP Internal Medicine; Visit Provider Urology | DX: N39.0 Urinary tract infection, site not specified (principal); R35.0 Frequency of micturition; R39.15 Urgency of urination | CPT/HCPCS: 87077; 87086; 87186 ==

== ENCOUNTER → 2022-01-24 13:48 | Outpatient (BNVA) | payer MEDICARE, OTHER, SELFPAY | PROVIDERS: PCP Internal Medicine; Referring Provider Internal Medicine; Visit Provider Urology | DX: N40.1 Benign prostatic hyperplasia with lower urinary tract symptoms (principal); R39.15 Urgency of urination; R32 Unspecified urinary incontinence; R35.1 Nocturia; Z87.440 Personal history of urinary (tract) infections | CPT/HCPCS: 81003; 99213 ==

== ENCOUNTER → 2022-01-31 14:46 | Outpatient (BNVA) | payer MEDICARE, OTHER, SELFPAY | PROVIDERS: PCP Internal Medicine; Referring Provider Internal Medicine; Visit Provider Urology | DX: Z87.440 Personal history of urinary (tract) infections (principal); R35.0 Frequency of micturition; N39.41 Urge incontinence | CPT/HCPCS: 81003; 99213 ==

== ENCOUNTER 2022-01-31 19:13 | Outpatient (REF) | payer MEDICARE, OTHER, SELFPAY | END 2022-01-31 19:14 | disposition home or self-care (01) | LOC: LBN 19:13 | PROVIDERS: PCP Internal Medicine; Visit Provider Urology | DX: N39.0 Urinary tract infection, site not specified (principal) | CPT/HCPCS: 87086 ==

== ENCOUNTER → 2022-02-27 01:31 | Outpatient (CLI) | payer MEDICARE, OTHER, SELFPAY ==
--- NOTE | 2022-02-27 07:00 | DI.CT_ITS ---
Exam(s) CT ABDOMEN PELVIS WO/W EXAM: CT ABDOMEN PELVIS WO/W TECHNIQUE: Imaging Protocol: Axial computed tomography images with coronal and sagittal reformatted images were created and reviewed. Images were performed from the lung bases through the ischial tuberosities before IV contrast and fol lowing IV contrast using a 70 second delay, followed by 12 minutes delayed images. CONTRAST MATERIAL: Intravenous: Omnipaque 350 Contrast volume:100 cc Oral: no COMPARISON: CT CT CHEST ABDOMEN PELVI from 12/25/2016 FINDINGS: ABDOMEN: Lung Bases: 2 stable tiny nodules right posterior lung base. Small hiatal hernia. Liver: Normal density. No measurable mass. Gallbladder and biliary tract: No radiodense calculus or dilation. Pancreas: Normal density, no abnormal calcifications or inflammatory process. Spleen: Normal. Kidneys: Normal size, contour and axis. Tiny stone near lower pole of right kidney in a subcapsular location. Symmetric homogeneous parenchymal enhancement. No obstructive uropathy. Small simple cys ts left kidney. No suspicious masses seen. Adrenal glands: No masses seen. Lymph nodes: Within normal limits. Abdominal Aorta: Abdominal portion non-dilated. Mild atherosclerotic changes. Soft tissues: Unremarkable. PELVIS: Bladder: Mild wall thickening. No evidence of a mass.No evidence of calculi. Bowel: No obstruction or bowel wall thickening. Appendix normal. Peritoneal cavity: No ascites, collection or mesenteric inflammatory response. Soft tissues: Bones: Severe degenerative disc changes. Joint space narrowing of the hips. Reproductive organs: Mildly enlarged prostate IMPRESSION: Left renal cysts. No suspicious renal mass. Tiny stone periphery of right kidney. No ureteral calculi. Mildly enlarged prostate and mild bladder wall thickening. No bladder calculi or bladder mass. RADIATION DOSE DELIVERED: 2,036.86mGy.cm Total DLP DATA REPOSITORY: All CT scans at this facility are submitted to the National Radiology Data Registry (NRDR) Dose Index Registry (DIR) with the [employer] (A[employer]). RADIATION OPTIMIZATION: All CT scans at this facility use at least one of these dose optimization te chniques: automated exposure control; mA and/or kV adjustment per patient size (includes targeted exa ms where dose is matched to clinical indication); or iterative reconstruction.
[2022-02-27 09:43] LABS: CREATININE 1.4 mg/dL (0.70-1.30); Estimated GFR 50.81 (mL/min/1.73m2)
[2022-02-27] MEDS: Omnipaque 350 MG/ML 500 ML BTL-Imaging package IJ (10:34)
== END ==
PROVIDERS: PCP Nurse Practitioner Adult Health; Visit Provider Urology
DX: N39.0 Urinary tract infection, site not specified (principal); R31.29 Other microscopic hematuria; N28.1 Cyst of kidney, acquired
CPT/HCPCS: 74178; 82565

== ENCOUNTER → 2022-03-03 07:54 | Outpatient (BNVA) | payer MEDICARE, OTHER, SELFPAY | PROVIDERS: PCP Nurse Practitioner Adult Health; Referring Provider Nurse Practitioner Adult Health; Visit Provider Urology | DX: N39.0 Urinary tract infection, site not specified (principal) | CPT/HCPCS: 81003; 99215 ==

== ENCOUNTER 2022-03-08 10:26 | Outpatient (REF) | payer MEDICARE, OTHER, SELFPAY ==
[2022-03-08 15:43] LABS: Bilirubin Negative (Negative); Blood Small (Negative); Clarity Cloudy (Clear); Glucose Negative (Negative); Ketones Negative (Negative); Leukocyte Esterase Small (Negative); Nitrite Negative (Negative); Urobilinogen 0.2 EU/dL (Up TO 0.2); pH 6.5 (5-8)
[2022-03-08 16:13] LABS: Bacteria Few HPF (Negative); C & S Indicated? C&S Done As Ordered; Crystals Negative HPF (Negative); Epithelial Cells Rare HPF (Negative); Mucus Negative (Negative); Other Cells Rare Renal (Negative); WBC >50 HPF (0-5)
== END 2022-03-08 10:27 | disposition home or self-care (01) ==
LOC: LBN 10:26
PROVIDERS: PCP Nurse Practitioner Adult Health; Visit Provider Nurse Practitioner Adult Health
DX: R30.0 Dysuria (principal); R31.0 Gross hematuria
CPT/HCPCS: 80048; 81003; 81015; 87086

== ENCOUNTER → 2022-03-24 09:43 | Outpatient (BNVA) | payer MEDICARE, OTHER, SELFPAY | PROVIDERS: PCP Nurse Practitioner Adult Health; Referring Provider Internal Medicine; Visit Provider Urology | DX: R82.998 Other abnormal findings in urine (principal); Z87.440 Personal history of urinary (tract) infections | CPT/HCPCS: 81003; 99214 ==

== ENCOUNTER 2022-03-24 11:58 | Outpatient (REF) | payer MEDICARE, OTHER, SELFPAY | END 2022-03-24 11:59 | disposition home or self-care (01) | LOC: LBN 11:58 | PROVIDERS: PCP Nurse Practitioner Adult Health; Visit Provider Urology | DX: N39.0 Urinary tract infection, site not specified (principal) | CPT/HCPCS: 87086 ==

== ENCOUNTER 2022-04-12 14:23 | Outpatient (CLI) | payer MEDICARE, OTHER, SELFPAY ==
[2022-04-12 14:41] VITALS: BP 131/74; PULSE 63; RESP 20; TEMP 37; O2SAT 96
[2022-04-12] MEDS: Omnipaque 240 MG/ML 50 ML BTL IJ (15:28)
[2022-04-12] MEDS: methylPREDNISolone ACETATE 80 MG/ML VIAL IJ (15:28)
--- NOTE | 2022-04-12 15:28 | PDOC.PAIN_ITS ---
Date of service: 04/12/22 Time of Service: 15:29 Pain Clinic Procedure Note Procedure Note Procedure Note: Lumbar Epidural Steroid Injection Procedure Note COMMENTS:He has done well with LESI in the past. His predominant symptom consists of back pain with bilateral hip pain. Lst procedure was done in 11/13/21. His current pain level is 3-4/10. Dx: Lumbosacral radiculopathy Pre-procedure pain VAS was 4/10. Levon Carter has been referred to the Pain Management Center for lumbar epidural steroid injection. The patient was greeted by the nurse who verified patients name and . Patient was then taken to the fluoroscopy suite. The patient was interviewed and the medial record reviewed. There were no medical, pharmacologic, radiographic, or other structural contraindications to attempting fluoroscopically guided lumbar epidural steroid injection. Risks and expected side effects as well as potential benefits of the procedure were reviewed and voiced concerns expressed. The patient consent form was signed and witnessed. Standard patient time-out procedure was performed. The patient was placed in the prone position on the fluoroscopy table and automated blood pressure cuff and pulse oximeter applied. The skin entry point for entering/approaching the epidural space by a L5-S1 and marked. Following thorough chlorhexadine preparation of the skin and draping and 1% lidocaine infiltration of the skin entry point and subcutaneous tissues, a 18 gauge Touhy needle was placed under fluoroscopic guidance and with loss of resistance technique into the epidural space. Needle tip placement and depth were aided and confirmed by fluoroscopy. There was no paresthesia or return of blood or CSF through the needle. 1 cc's of Omnipaque 240 was injected with clear epidural spread confirmed with fluoroscopy. 80mg depomedrol was injected. There was not any unusual discomfort expressed by Levon Carter. Patient's vital signs were stable throughout the procedure and were as recorded in nursing records. Follow up plans and appointments were discussed with patient. Post procedure instruction was given as documented in nursing records and having met discharge criteria and was discharged from the Pain Management Center. COMMENTS: If this procedure is helpful, it can be completed up to 3 times per 12 months. Post-procedure pain VAS was 1/10. Curt Carias MD [facility]-Pain Management [facility]-Center for Pain Management
--- NOTE | 2022-04-12 15:30 | DI.RAD_ITS ---
Exam(s) XR PAIN CLINIC LUMBAR SP 2V EXAM: XR PAIN CLINIC LUMBAR SP 2V CLINICAL HISTORY: Dx: Lumbar Radiculopathy TECHNIQUE: 2D and realtime digital imaging was performed. CONTRAST MATERIAL: Refer to procedure report. COMPARISON: No exams were available for comparison FINDINGS: Fluoroscopy was provided for Dr. Carias during the performance of a lumbar epidural steroid injection. Please refer to the procedure report for complete details. Ka,r=6.23 mGy IMPRESSION:
[2022-04-12 15:31] VITALS: BP 147/91; PULSE 65; RESP 16; O2SAT 97
== END 2022-04-12 14:24 | disposition home or self-care (01) ==
LOC: PC 14:23
PROVIDERS: PCP Nurse Practitioner Adult Health; Visit Provider Internal Medicine
DX: M54.17 Radiculopathy, lumbosacral region (principal)
CPT/HCPCS: 62323; 72100; J1040; Q9967

== ENCOUNTER 2022-04-27 16:40 | Outpatient (REF) | payer MEDICARE, OTHER, SELFPAY ==
[2022-04-27 17:44] LABS: Bilirubin Negative (Negative); Blood Trace-intact (Negative); Clarity Cloudy (Clear); Glucose Negative (Negative); Ketones Negative (Negative); Leukocyte Esterase Small (Negative); Nitrite Positive (Negative); Specific Gravity >= 1.030 (1.005-1.025); Urobilinogen 0.2 EU/dL (Up TO 0.2)
[2022-04-27 17:54] LABS: Bacteria Many HPF (Negative); C & S Indicated? Yes; Casts Negative LPF (Negative); Crystals Negative HPF (Negative); Epithelial Cells Few HPF (Negative); Mucus Negative (Negative); WBC >50 HPF (0-5)
== END 2022-04-27 16:41 | disposition home or self-care (01) ==
LOC: LBN 16:40
PROVIDERS: PCP Nurse Practitioner Adult Health; Visit Provider Urology
DX: N39.0 Urinary tract infection, site not specified (principal)
CPT/HCPCS: 87077; 81003; 81015; 87086; 87186

== ENCOUNTER 2022-05-09 15:45 | Outpatient (REF) | payer MEDICARE, OTHER, SELFPAY ==
[2022-05-09 19:06] LABS: Bilirubin Negative (Negative); Blood Negative (Negative); Clarity Clear (Clear); Glucose Negative (Negative); Ketones Negative (Negative); Leukocyte Esterase Negative (Negative); Nitrite Negative (Negative); Specific Gravity 1.025 (1.005-1.025); Urobilinogen 0.2 EU/dL (Up TO 0.2)
== END 2022-05-09 15:46 | disposition home or self-care (01) ==
LOC: LBN 15:45
PROVIDERS: PCP Nurse Practitioner Adult Health; Visit Provider Urology
DX: N39.0 Urinary tract infection, site not specified (principal)
CPT/HCPCS: 81003

== ENCOUNTER → 2022-05-25 14:53 | Outpatient (BNVA) | payer MEDICARE, OTHER, SELFPAY | PROVIDERS: PCP Nurse Practitioner Adult Health; Referring Provider Nurse Practitioner Adult Health; Visit Provider Urology | DX: N39.0 Urinary tract infection, site not specified (principal) | CPT/HCPCS: 99214 ==

== ENCOUNTER 2022-06-29 01:43 | Outpatient (CLI) | payer MEDICARE, OTHER, SELFPAY ==
[2022-06-29 16:52] LABS: Anion Gap 3.1 mmol/L (3-11); BUN 24 mg/dL (7-18); CO2 32.9 mmol/L (21.0-32.0); CREATININE 1.2 mg/dL (0.70-1.30); Calcium 9.1 mg/dL (8.5-10.1); Chloride 104 mmol/L (98-107); Estimated GFR 61.13 (mL/min/1.73m2); Glucose 74 mg/dL (74-106); Potassium 3.8 mmol/L (3.5-5.1); Sodium 140 mmol/L (136-145)
[2022-06-29 17:20] LABS: Vitamin D 25 Total 37.9 ng/mL (30-100)
== END 2022-06-29 01:44 | disposition home or self-care (01) ==
LOC: LBO 01:43
PROVIDERS: PCP Nurse Practitioner Adult Health; Visit Provider Nurse Practitioner Adult Health
DX: N18.31 Chronic kidney disease, stage 3a (principal); I10 Essential (primary) hypertension
CPT/HCPCS: 36415; 80048; 82306

== ENCOUNTER 2022-07-03 07:28 | Inpatient (IN) | payer MEDICARE, OTHER, SELFPAY ==
[2022-07-03] VITALS (13 sets, daily range): BP systolic 86–143; BP diastolic 47–82; PULSE 45–80; RESP 14–18; TEMP 34–36.7; O2SAT 93–99; BMI 22.8
[2022-07-03 07:53] LABS: Source Nasal/Nares
--- NOTE | 2022-07-03 08:03 | W.ANESPRE ---
General Info Date of Service Date Performed: 07/03/22 Height: 5 ft 10 in Weight: 72.2 kg Body Mass Index (BMI): 22.8 Surgical Procedure: Operation Date: 07/03/22 08:40 Proposed Procedure Side Surgeon p Cystoscopy w/Transurethral Resection Prostate Noble Jackson MD Meds Allergies and Home Medications Allergies Allergy/AdvReac Type Severity Reaction Status Date / Time lisinopril Allergy Intermediate SKIN RASH Verified 07/03/22 07:50 bupropion Allergy Mild SKIN RASH Verified 07/03/22 07:50 amlodipine AdvReac Intermediate EDEMA Verified 07/03/22 07:50 atenolol AdvReac Intermediate Decreased Verified 07/03/22 07:50 heart rate in 40's, palpitations losartan AdvReac Intermediate Increased Verified 07/03/22 07:50 creatinine sertraline AdvReac Intermediate CAUSED Verified 07/03/22 07:50 DEPRESSION Home Medication Medication Instructions Recorded lorazepam 1 mg tablet 1 mg PO Q6H PRN 02/04/19 acetaminophen 500 mg tablet 1,000 mg PO Q6H PRN 04/27/20 (Tylenol Extra Strength) vitamins A,C,J-lyct-khuvsj 2,148 2 tab PO BID 07/01/20 mcg-113 mg-45 mg-17.4 mg tablet (PreserVision AREDS) clobetasol 0.05 % topical ointment See Rx Instructions topical 02/02/21 .COMPLEX PRN docusate sodium 100 mg capsule 100 mg PO DAILY PRN 11/15/21 hydrochlorothiazide 12.5 mg tablet 12.5 mg PO QAM #90 tabs 12/14/21 trazodone 150 mg tablet See Rx Instructions PO QHS PRN 12/23/21 insomnia atorvastatin 20 mg tablet 20 mg PO DAILY #90 tabs 02/27/22 mirabegron 25 mg tablet,extended 25 mg PO DAILY #90 tabs 04/21/22 release 24 hr (Myrbetriq) betamethasone dipropionate 0.05 % 1 applic topical BID 05/11/22 topical ointment betamethasone dipropionate topical 05/25/22 tamsulosin 0.4 mg capsule See Rx Instructions .Route 05/29/22 .COMPLEX #180 caps nirmatrelvir 150 mg-ritonavir 100 See Rx Instructions PO PER PKG DIR 06/12/22 mg tablets in a dose pack (EUA) #20 dose pk (Paxlovid) gabapentin 600 mg tablet 600 mg PO TID PRN 07/03/22 Current Visit Medications: Current Medications Generic Name Dose Route Start Last Admin Trade Name Freq PRN Reason Stop Dose Admin Ringer's Solution 1,000 mls @ 80 mls/hr 07/03/22 06:00 IV 07/30/22 23:59 INFUSION RAQUEL Cefazolin Sodium/Dextrose 2 gm in 50 mls @ 100 mls/hr 07/03/22 06:00 Ancef Duplex IVPB 07/30/22 23:59 PREOP RAQUEL IV Miscellaneous Supplies 1 each 07/03/22 06:00 Iv Access IV 07/30/22 23:59 DIRECTED RAQUEL Sodium Chloride 0 ml 07/03/22 06:00 Normal Saline Flush 10 Ml Syr IV 07/30/22 23:59 PRN PRN Sodium Chloride 0 ml 07/03/22 06:00 Normal Saline 10 Ml Vial IJ 07/30/22 23:59 DIRECTED PRN Sterile Water 0 ml 07/03/22 06:00 Water,Injection,Sterile 10 Ml Vial IJ 07/30/22 23:59 DIRECTED PRN PFSH Active Problems Active Problems: Problem Status Onset Code Actinic keratoses L57.0 COVID 03/09/22 U07.1 Nail dystrophy L60.3 Microscopic hematuria R31.29 Recurrent UTI (urinary tract infection) N39.0 Frequency of micturition R35.0 Urge incontinence of urine N39.41 Chronic kidney disease, stage 3a N18.31 Insomnia G47.00 Nocturia R35.1 Hypertension I10 Pure hypercholesterolemia 08/21/12 E78.00 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 Impotence 09/24/12 N52.9 Degenerative lumbar spinal stenosis 10/10/16 M48.061 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 Anxiety state, unspecified 08/21/12 F41.1 Allergic rhinitis, unspecified 08/21/12 J30.9 Medical History Medical History Actinic keratosis Adjustment disorder Allergic rhinitis Anxiety state Atrophy, 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) 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/23/15) Dupuytren's contracture of left hand 06/09/20- [facility] [place] ortho note (left 3rd and 4th fingers) Mass of right thigh Rosacea (06/05/17) Surgical History Surgical History Colonoscopy - IV Sedation (07/18/13) Xiaflex [place] [facility] [place] Tobacco Smoking/Tobacco Use Status: Never Alcohol Alcohol Intake: current Alcohol intake frequency: 0-2 drinks per day Alcohol type: beer, wine and hard liquor Substance Use Substance use: Never Substance use type: does not use Vital Signs and Lab Results Vital Signs Most Recent Vital Signs in EMR: Most Recent Vital Signs Temp Pulse Resp BP Pulse Ox 36.5 C 58 L 18 143/82 H 99 07/03/22 07:33 07/03/22 07:33 07/03/22 07:33 07/03/22 07:33 07/03/22 07:33 Lab Results Blood Type / Crossmatch: No Data to Display Complete Blood Count: No Data to Display Complete Metabolic Panel: Sodium 140 mmol/L (136-145) 06/29/22 15:38 Potassium 3.8 mmol/L (3.5-5.1) 06/29/22 15:38 Chloride 104 mmol/L (98-107) 06/29/22 15:38 Carbon Dioxide 32.9 mmol/L (21.0-32.0) H 06/29/22 15:38 BUN 24 mg/dL (7-18) H 06/29/22 15:38 Creatinine 1.2 mg/dL (0.70-1.30) 06/29/22 15:38 Est GFR (CKD-EPI 2020) 61.13 (mL/min/1.73m2) 06/29/22 15:38 Calcium 9.1 mg/dL (8.5-10.1) 06/29/22 15:38 Glucose 74 mg/dL (74-106) 06/29/22 15:38 Liver Function Panel: No Data to Display Coagulation Panel: No Data to Display Cardiac Panel: No Data to Display Arterial Blood Gas: No Data to Display Venous Blood Gas: No Data to Display Pancreas Panel: No Data to Display Thyroid Panel: No Data to Display Infectious Disease: Coronavirus (COVID-19)(PCR) Negative (Negative) 07/03/22 07:41 Coronavirus 2019 Source Nasal/Nares 07/03/22 07:41 Blood Cultures: No Data to Display Toxicology Panel: No Data to Display Anesthesia Assessment and Plan Anesthesia History Personal History: No History of Anesthesia Complications Family History: No Family History of Anesthesia Complications Exercise Tolerance Exercise Tolerance: Metabolic Equivalents>4 Pertinent Negatives Pertinent Negatives: No Symptoms of GERD, No Major Cardiovascular Symptoms or Complaints, No Major Pulmonary Symptoms or Complaints and No History of CVA/TIA Cardiac & Pulmonary Exam Cardiac Exam: Normal S1/S2 Heart Sounds Pulmonary Exam: Clear Bilateral Breath Sounds Implantable Cardiac Device Does patient have a Pacemaker or an ICD?: No Airway Exam Known Difficult Airway: No Mallampati Class: 1 Mouth Opening: Normal (> 3cm) Thyromental Distance: Greater than 3 cm Neck Range of Motion: Limited ROM Neck Circumference: Normal Teeth Condition: Normal Dentition and Generalized Poor Dentition ASA Classification ASA Score: ASA 3 Emergency Case?: No NPO Status NPO Status: NPO Clears >2 hours, Solids >8 hours Anesthesia Plan Resuscitation Status: Full Code Anesthesia Technique: Spinal Anesthesia Airway Planned: Natural Airway Pain Management: Surgeon and patient request nerve block Monitors Used: Standard Monitors Preoperative Comments:: Discussed options between spinal and general. Patient would like less general anesthetic medicine than more so would like the spinal if possible. Patient understands that general anesthesia is always a possibility, especially with his spine history. US machine in room.
--- NOTE | 2022-07-03 08:09 | W.PM.HP.N ---
Date of service: 07/03/22 Time of Service: 08:09 Assessment and Plan Assessment and plan (1) Recurrent UTI (urinary tract infection): Status: Acute Assessment and plan: He has failed maximal medical therapy. He has explored multiple surgical treatments for BPH. He presents for cystoscopy and TURP using bipolar cautery. We will plan to keep him in the hospital at least overnight for continuous bladder irrigation and IV antibiotics. (2) BPH (benign prostatic hyperplasia): Status: None Qualifiers: Lower urinary tract symptom detail: nocturia Lower urinary tract symptom presence: symptoms present Qualified Code(s): N40.1 - Benign prostatic hyperplasia with lower urinary tract symptoms; R35.1 - Nocturia (3) Urge incontinence of urine: Status: Chronic (4) Frequency of micturition: Status: Acute (5) Nocturia: Status: Chronic History of Present Illness History of Present Illness Chief Complaint: Lower urinary tract symptoms Narrative: This is an 81-year-old gentleman who has a history of recurrent E. coli urinary tract infections. He has lower urinary tract symptoms including urinary frequency, urgency and nocturia. He has been on maximal medical therapy for his lower urinary tract symptoms, but the UTIs have persisted. We find no abnormalities in the upper tracts that would explain his recurrent UTIs. We suspect he may have bacteria trapped in the prostate. He had a consultation with the urology providers down at [facility]. Multiple surgical treatment options were discussed and considered. The patient is agreeable to a transurethral resection of the prostate using bipolar cautery. 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 He has no known bleeding disorders. Review of Systems Narrative: No fevers or chills No vision change or dysphasia No diabetes or thyroid dysfunction No shortness of breath, cough or hemoptysis No chest pain or palpitations No nausea, vomiting, hepatitis, ulcers, jaundice, diarrhea or constipation No seizures, strokes or peripheral neuropathy No bleeding disorders or anemia Low back pain - receives injection therapy from pain clinic. 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 05/03/20 F/U Derm, return in 6 mos. 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) 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/23/15) Dupuytren's contracture of left hand 06[place]09/20[place] [facility] [place]left 3rd and 4th fingers) Mass of right thigh Rosacea (06/05/17) Surgical History Colonoscopy - IV Sedation (07/18/13) Xiaflex therapy left hand [facility] [place] (10/12/14) Family History Brother Prostate cancer Mother Mental disorder Anxiety Father Myocardial infarction Social History Smoking/Tobacco Use Status: Never Smoking risk assessment performed?: Yes Alcohol Intake: current Alcohol Intake frequency: 0-2 drinks per day Alcohol type: beer, wine and hard liquor Drug use: Never Substance use type: does not use Household members: spouse Housing: house Communication Needs: Corrective Lenses current occupation: professor What is your relationship status?: Panel score (0-1 are the most socially isolated patients): 1 What type of physical activity do you participate in: walking Frequency: 3-[address] intox or ride w/intox road driver: No Working smoke detector in home: Yes Carbon monox detector in home: Yes Do you feel safe at home: Yes Do you feel safe in your relationship?: Yes Additional Social history: unable to assess privately-07/03/22 mkb Meds Allergies and Home Medications Allergies Allergy/AdvReac Type Severity Reaction Status Date / Time lisinopril Allergy Intermediate SKIN RASH Verified 07/03/22 07:50 bupropion Allergy Mild SKIN RASH Verified 07/03/22 07:50 amlodipine AdvReac Intermediate EDEMA Verified 07/03/22 07:50 atenolol AdvReac Intermediate Decreased Verified 07/03/22 07:50 heart rate in 40's, palpitations losartan AdvReac Intermediate Increased Verified 07/03/22 07:50 creatinine sertraline AdvReac Intermediate CAUSED Verified 07/03/22 07:50 DEPRESSION Home Medications Medication Instructions Recorded Confirmed Type lorazepam 1 mg tablet 1 mg PO Q6H PRN 02/04/19 07/03/22 History acetaminophen 500 mg tablet 1,000 mg PO Q6H PRN 04/27/20 06/30/22 History (Tylenol Extra Strength) vitamins A,C,A-ckod-wyemcw 2,148 2 tab PO BID 07/01/20 07/03/22 History mcg-113 mg-45 mg-17.4 mg tablet (PreserVision AREDS) clobetasol 0.05 % topical ointment See Rx Instructions topical 02/02/21 07/03/22 History .COMPLEX PRN docusate sodium 100 mg capsule 100 mg PO DAILY PRN 11/15/21 07/03/22 History hydrochlorothiazide 12.5 mg tablet 12.5 mg PO QAM #90 tabs 12/14/21 07/03/22 Rx trazodone 150 mg tablet See Rx Instructions PO QHS PRN 12/23/21 07/03/22 History insomnia atorvastatin 20 mg tablet 20 mg PO DAILY #90 tabs 02/27/22 07/03/22 Rx mirabegron 25 mg tablet,extended 25 mg PO DAILY #90 tabs 04/21/22 07/03/22 Rx release 24 hr (Myrbetriq) betamethasone dipropionate 0.05 % 1 applic topical BID 05/11/22 07/03/22 History topical ointment betamethasone dipropionate topical 05/25/22 05/25/22 History tamsulosin 0.4 mg capsule See Rx Instructions .Route 05/29/22 07/03/22 Rx .COMPLEX #180 caps nirmatrelvir 150 mg-ritonavir 100 See Rx Instructions PO PER PKG DIR 06/12/22 06/30/22 Rx mg tablets in a dose pack (EUA) #20 dose pk (Paxlovid) gabapentin 600 mg tablet 600 mg PO TID PRN 07/03/22 07/03/22 History Exam Const General: cooperative and anxious Neck Neck: normal visual inspection Resp Effort & Inspection: normal respiratory effort Auscultation: clear to auscultation bilaterally Cardio Rate: regular rate Rhythm: regular rhythm GI Inspection: normal to inspection Palpation: soft Neuro General: patient alert, patient awake and patient oriented x3 Results Labs Labs: Laboratory Results - last 24 hr 07/03/22 07:41 COVID-19 Source Nasal/Nares Last Vital Signs Temp 36.5 C 07/03/22 07:33 Pulse 58 L 07/03/22 07:33 Resp 18 07/03/22 07:33 BP 143/82 H 07/03/22 07:33 Pulse Ox 99 07/03/22 07:33 Time Spent Time spent with Patient: <40 minutes Time was spent: care coordination
[2022-07-03] MEDS: Lactated Ringers 1,000 ML 80 ML IV ×3 (08:17→15:42)
[2022-07-03 08:25] LABS: COVID-19 PCR Negative (Negative)
[2022-07-03] MEDS: ceFAZolin 2 GM/50 ML BAG IVPB (09:01)
[2022-07-03] MEDS: Lidocaine 2% Jelly 11 ML SYR (09:36)
--- NOTE | 2022-07-03 09:45 | PROST_PTH ---
PATIENT: Levon Carter LOC: U#:[id number] AGE/SX: 81/M ROOM: MS.205 RE07/03/[address]: Noble Jackson MD : [id number] BED: A DIS: 07/04/2022 SPEC #: [id number] RECD: 07/03/22 11:37 STATUS: SOUT REQ #: [id number] XAVI: 07/03/22 09:[address]: Noble Jackson DEPT: Surgical Specimen RECD BY: Fatmata Medina ENTERED: 07/03/22 11:37 SP TYPE: PROST OTHR DR: Luana Willis APRN Tissues: 1 - PROSTATE CURRETTINGS Procedures: GROSS AND MICRO LEVEL 4 Comments: [id number]
--- NOTE | 2022-07-03 10:41 | ROE_ITS ---
Date of service: 07/03/22 Time of Service: 10:41 Operative Note Operative Note DATE OF PROCEDURE: 07/03/22 PRE-OP DIAGNOSIS: BPH with lower urinary tract symptoms POST-OP DIAGNOSIS: same PROCEDURE: Cystoscopy with transurethral resection of prostate SURGEON: Noble Jackson ANESTHESIA TYPE: Local By Surgeon and Spinal Refer to Anesthesia Record ESTIMATED BLOOD LOSS: 100 PATHOLOGY: other (Prostate chips) COMPLICATIONS: None Patient was transported to: PACU Patient's condition: stable Implants: 22 [place]uan hematuria catheter with 30 cc of sterile water in balloon Indications: This is an 81-year-old gentleman who has a history of recurrent urinary tract infections. Each of his positive urine cultures have grown E. coli. He has lower urinary tract symptoms including urinary frequency, urgency and nocturia. He has been on maximal medical therapy with alpha blockers and bladder relaxers. We have not identified an upper tract cause for his recurrent UTIs. We discussed a low-dose of a prophylactic antibiotic versus surgical treatment thinking that the prostate was the source of his lower urinary tract symptoms and his UTIs. He presents for TURP. Findings: Enlarged lateral lobes with no significant median lobe of the prostate Procedure Description: The patient was given preoperative antibiotics and brought to the operating room on 07/03/2022. After successful induction of spinal anesthesia, he was placed in the dorsal lithotomy position. His genitalia was prepped and draped. 2% Xylocaine jelly was instilled into the urethra to act as a local anesthetic. A 24 [place]uan resectoscope sheath was passed through the urethra into the bladder. The urethra and bladder were inspected with the 30 degree lens. The pendulous, bulbar and membranous urethra's all appeared normal with no stri ctures. The prostatic urethra showed some lateral lobe enlargement but no significant median lobe. The bladder neck was entered and the bladder mucosa was inspected. Both ureteral orifices appeared normal with no blood coming from either side. The bladder was moderately trabeculated. I found no bladder diverticuli and no bladder stones. No papillary or nodular lesions were seen on the bladder mucosa. We then utilized an Plumbr resectoscope and bipolar cautery to perform transurethral resection of the prostate. We resected tissue from the bladder neck out to the verumontanum. All resected tissue was evacuated and sent to pathology for permanent section. The depth of the resection was down to the prostatic capsule. Once we reached the prosthetic muscle, we switched to a vaporization ball and vaporized and cauterized the resected area. At the completion of the procedure, no arterial bleeding was identified. The bladder was filled with irrigant and the resectoscope was removed. We then passed the 22 [place] hematuria catheter through the urethra into the bladder. The catheter balloon was inflated with 30 cc of sterile water. Continuous bladder irrigation with saline was begun. Traction was placed on the catheter until the irrigant became clear. The catheter was then hooked to gravity drainage. The patient tolerated this procedure well with no complications.
--- NOTE | 2022-07-03 11:48 | W.ANESPOSTOP ---
Postoperative Evaluation Date, Time and Location Date Performed: 07/03/22 Time Performed: 11:49 Patient Location: PACU Vital Signs Most Recent Imported Vital Signs: Most Recent Vital Signs Temp Pulse Resp BP Pulse Ox 36.3 C L 47 L 18 114/59 L 97 07/03/22 11:20 07/03/22 11:20 07/03/22 11:20 07/03/22 11:20 07/03/22 11:20 Pain Score Most Recent Pain Score: Most Recent Pain Score Pain Level 0 07/03/22 11:20 Assessment Mental Status: Awake (Alert & Oriented to Patient Baseline) Airway and Respiratory Function: Patent airway with normal (patient baseline) respiratory exam Cardiovascular Function: Hemodynamically Stable Hydration Status: Adequately Hydrated Nausea & Vomiting: No Nausea or Vomiting Pain: Pt. Denies Any Pain Peripheral Nerve Block: Patient did not receive a nerve block (Spinal worn off appropriately. ) Postoperative Comments:: Lengthy discussion with patient at bedside related to expectations, patient thought that he would not be as sleepy as he was during the case and wanted clarification. I discussed and clarified the use of sedation at variable levels in the operating room with the patient and he appeared content. Discussed his anesthetic, how he progressed, and our satisfaction with how he did. Patient denied further questions and stated he was content. Currently denying pain or nausea, appropriate for transition to the floor.
[2022-07-03] MEDS: ceFAZolin 1 GM/50 ML BAG IVPB ×2 (13:26→17:11)
[2022-07-03] MEDS: Docusate Sodium 100 MG CAP PO (19:41)
[2022-07-03] MEDS: Clobetasol 0.05% CREAM 15 GM TUBE TP (19:41)
[2022-07-03] MEDS: traZODone 100 MG TAB PO (21:07)
[2022-07-04] MEDS: ceFAZolin 1 GM/50 ML BAG IVPB ×2 (00:19→05:36)
[2022-07-04] MEDS: Lactated Ringers 1,000 ML 80 ML IV (00:19)
[2022-07-04 06:42] LABS: Abs Immature Grans 0.03 10^3/uL (0.0-0.06); Absolute Basophil Count 0.01 10^3/uL (0.0-0.2); Absolute Eosinophil Count 0.09 10^3/uL (0.0-0.7); Absolute Lymphocyte Count 1.66 10^3/uL (1.2-3.4); Absolute Monocyte Count 0.56 10^3/uL (0.1-0.8); Absolute Neutrophil Count 7.57 10^3/uL (1.2-6.7); Basophils % 0.1; Eosinophils % 0.9; HCT 32.2 % (40.0-50.0); HGB 10.7 g/dL (13.5-17.5); Immature Grans % 0.3; Lymphocytes % 16.7; MCH 29.9 pg (27.0-33.0); MCHC 33.2 % (32.0-36.0); MCV 90 fL (80-95); MPV 10.3 fL (8.0-11.0); Monocytes % 5.6; Neutrophils % 76.4; Platelet Count 141 10^3/uL (130-400); RBC 3.58 10^6/uL (4.36-5.78); RDW 12.9 % (11.8-14.1); RDW-SD 42.8 fL; WBC 9.92 10^3/uL (4.4-10.8)
[2022-07-04 06:59] LABS: Anion Gap 3.1 mmol/L (3-11); BUN 17 mg/dL (7-18); CO2 29.9 mmol/L (21.0-32.0); Calcium 8.4 mg/dL (8.5-10.1); Chloride 110 mmol/L (98-107); Estimated GFR 76.08 (mL/min/1.73m2); Glucose 109 mg/dL (74-106); Potassium 4.1 mmol/L (3.5-5.1); Sodium 143 mmol/L (136-145)
[2022-07-04 07:15] VITALS: BP 136/76; PULSE 56; RESP 18; TEMP 36.4; O2SAT 98
--- NOTE | 2022-07-04 07:27 | W.PM.PROGNOT ---
Date of Service Date of service: 07/04/22 Time of Service: 07:27 Assessment and Plan Assessment and plan (1) Recurrent UTI (urinary tract infection): Status: Acute (2) BPH (benign prostatic hyperplasia): Status: None Assessment and plan: He is doing quite well following his TURP. We will discontinue his IV fluids and his continuous bladder irrigation. I will reassess him later this morning and if the bladder irrigation does not need to be reinstituted, I will plan on discharging him later today. Qualifiers: Lower urinary tract symptom presence: symptoms present Lower urinary tract symptom detail: nocturia Qualified Code(s): N40.1 - Benign prostatic hyperplasia with lower urinary tract symptoms; R35.1 - Nocturia Subjective Subjective Interval history since last seen: Mr. Carter has remained comfortable overnight with no episodes of clot retention. He is tolerating oral nutrition with no nausea or vomiting Exam Narrative Exam Narrative: He appears comfortable His vital signs are documented elsewhere His bladder irrigation is clear He is awake and alert Objective Last Vital Signs Temp 36.7 C 07/03/22 23:09 Pulse 60 07/03/22 23:09 Resp 18 07/03/22 23:09 BP 115/65 07/03/22 23:09 Pulse Ox 98 07/03/22 23:09 Laboratory Results - last 24 hr 07/03/22 07/04/22 07/04/22 07:41 06:00 06:00 WBC 9.92 RBC 3.58 L Hgb 10.7 L Hct 32.2 L MCV 90 MCH 29.9 MCHC 33.2 RDW 12.9 Plt Count 141 MPV 10.3 Immature Gran % 0.3 Neutrophils % 76.4 Lymphocytes % 16.7 Monocytes % 5.6 Eosinophils % 0.9 Basophils % 0.1 Nucleated RBC % 0.0 Absolute Neutrophils 7.57 H Absolute Lymphocytes 1.66 Absolute Monocytes 0.56 Absolute Eosinophils 0.09 Absolute Basophils 0.01 Sodium 143 Potassium 4.1 Chloride 110 H Carbon Dioxide 29.9 Anion Gap 3.1 BUN 17 Creatinine 1.0 Est GFR (CKD-EPI 2020) 76.08 Glucose 109 H Calcium 8.4 L COVID-19 Source Nasal/Nares SARS-CoV-2 (PCR) Negative PAWSS Have you Been Recently Intoxicated or Drunk Within the Last 30 days?: No Have you Ever Experienced Previous Episodes of Alcohol Withdrawal?: No Have you ever Experienced Withdrawal Seizures?: No Have you ever Experienced Delirium Tremens(DT)s?: No Have you ever undergone Alcohol Rehabilitation Treatment (i.e, inpt ot outpatient treatment programs)?: No Have you ever Experienced Blackouts?: No Have you ever Combined Alcohol with other Downers within the last 90 days?: No Have you ever Combined Alcohol with any other Substance of Abuse during the last 90 days?: No Positive Blood Alcohol level on Presentation? [PCS.BAL]: No Evidence of Increased Autonomic Activity (i.e. HR>120, tremor, sweating, agitation, nausea)?: No Result: 0 Time Spent with Patient Time Spent with Patient: <25 minutes Time was spent: preparing to see the patient(eg.review tests) and counseling the patient
[2022-07-04 08:06] VITALS: BP 136/76; PULSE 56; RESP 20; O2SAT 98
[2022-07-04] MEDS: Atorvastatin 20 MG TAB PO (08:13)
[2022-07-04] MEDS: Docusate Sodium 100 MG CAP PO (08:14)
[2022-07-04] MEDS: Tamsulosin 0.4 MG CAPCR 0.8 MG PO (08:15)
[2022-07-04] MEDS: hydroCHLOROthiazide 12.5 MG TAB PO (08:15)
[2022-07-04] MEDS: Mirabegron 25 MG TABCR PO (08:16)
[2022-07-04] MEDS: metroNIDAZOLE 0.75% CR. 45 GM TUBE TP (08:17)
[2022-07-04] MEDS: Normal Saline Flush 10 ML SYR IV ×2 (08:18→09:48)
[2022-07-04] MEDS: Ketorolac 15 MG/ML VIAL IVP (09:45)
--- NOTE | 2022-07-04 12:35 | DSE_ITS ---
Date of service: 07/04/22 Time of Service: 12:35 DS: Diagnosis Discharge Diagnosis (1) Recurrent UTI (urinary tract infection): Status: Acute (2) BPH (benign prostatic hyperplasia): Status: None Discharge Plan Discharge Details Reason For Visit: BPH with Luts Admit Date/Time: 07/03/22 07:28 Admit Provider: Noble Jackson Attending Provider: Noble Jackson Primary Care Provider: Luana Willis Hospital Course Hospital Course: The patient was admitted and taken to the operating room on 07/03/2022. He underwent a transurethral resection of the prostate. Following the procedure, he was maintained with continuous bladder irrigation overnight. His irrigant remained clear, so we discontinued the bladder irrigation. The patient had low urine output which required an adjustment on the Leon catheter positioning. He then had very clear urine obtained from the catheter. On postoperative day #1, he was tolerating oral nutrition and medications. He was afebrile. His postoperative lab work was appropriate. He is deemed ready for discharge. Home Meds and New Rx's Prescriptions: New nitrofurantoin monohyd/m-cryst 100 mg capsule 100 mg PO Q12H 5 Days Qty: 10 0RF Rx Instructions: must administer with a meal/food No Action acetaminophen [Tylenol Extra Strength] 500 mg tablet 1,000 mg PO Q6H PRN Patient Comments: for walking Rx Instructions: takes 100 mg daily. 04/27/20 cgc docusate sodium 100 mg capsule 100 mg PO DAILY PRN clobetasol 0.05 % ointment See Rx Instructions TP .COMPLEX PRN Rx Instructions: 01/2021: apply for 2 wks, none for 2 wks, apply for 2 wks, none for 2 wks. trazodone 150 mg tablet See Rx Instructions PO QHS PRN (Reason: insomnia) Patient Comments: 12/23/21- pt reports taking 300 mg po at HS. Rx Instructions: 1-2 tabs PO every day at bedtime PRN; 01/2021: 2.5 tabs qhs prn sleep lorazepam 1 mg tablet 1 mg PO Q6H PRN Rx Instructions: note dated 01/13/19 [facility] [place], Deejay Moody MD hydrochlorothiazide 12.5 mg tablet 12.5 mg PO QAM Qty: 90 3RF atorvastatin 20 mg tablet 20 mg PO DAILY Qty: 90 3RF Myrbetriq 25 mg tablet extended release 24 hr 25 mg PO DAILY Qty: 90 4RF betamethasone dipropionate 0.05 % ointment 1 applic topical BID Rx Instructions: Apply twice daily for the first 15 days of the month (L arm, abdomen, popliteal fossae, buttocks, low back) betamethasone dipropionate topical Rx Instructions: Use twice daily on the first 15 days on the month in place of Clobetasol. tamsulosin 0.4 mg capsule See Rx Instructions .ROUTE .COMPLEX Qty: 180 3RF Dose Instruction: TAKE 2 CAPSULES DAILY FOR NOCTURIA (DOSE IS ACTUALLY 0.8MG DAILY RATHER THAN 0.4MG DAILY) Rx Instructions: TAKE 2 CAPSULES DAILY FOR NOCTURIA (DOSE IS ACTUALLY 0.8MG DAILY RATHER THAN 0.4MG DAILY) PreserVision AREDS 7,160 unit- 113 mg-100 unit Tablet 2 tab PO BID gabapentin 600 mg tablet 600 mg PO TID PRN Discharge Instructions Additional Instructions: Leon catheter to leg bag Catheter plug to the irrigation port An antibiotic has been sent to [facility] to help prevent urinary tract infection while the catheter is in place Follow-up appointment in our office in 3 to 7 days for catheter removal-this appointment can be with one of the nurses in the office Follow-up appointment with me in approximately 2 to 3 weeks to review the surgical pathology. Activity:: No lifting over 10 pounds until follow-up visit Shower/Bathe:: 24 hours Equipment/Supplies:: Leon catheter to leg bag Diet:: As Tolerated Discharge Data Discharge Physician: Noble Jackson DS: Summary Time Spent with Patient providing and/or coordinating discharge services: Less than 30 minutes Status at Discharge Functional status at discharge: independent ambulation Overall status at discharge: patient is back to baseline Mental Status: mental status grossly normal Speech and Movement: speech and movement normal Mood: congruent mood Affect: normal affect Exam Narrative Exam Narrative: At the time of discharge, he appears comfortable His vital signs are documented elsewhere His chest wall motion is normal. He is not short of breath at rest. His abdomen is soft and nontender His Leon catheter is draining clear urine He is awake and alert Psych Mental Status: mental status grossly normal Speech and Movement: speech and movement normal Mood: congruent mood Affect: normal affect DS: Data Vitals/I&O Vitals and I&O: Vital Signs Temperature 36.4 C L 07/04/22 07:15 Temperature Source Tympanic 07/04/22 07:15 Pulse 56 L 07/04/22 08:06 Pulse Rhythm Regular 07/04/22 10:00 Respiratory Rate 20 07/04/22 08:06 Respiratory Effort Normal 07/04/22 10:00 Respiratory Depth Normal 07/04/22 10:00 Respiratory Pattern Normal 07/04/22 10:00 Blood Pressure 136/76 07/04/22 08:06 Pulse Oximetry 98 07/04/22 07:15 Respiratory End-tidal CO2 37 07/03/22 11:00 Oxygen Delivery Method Room Air 07/04/22 07:15 Oxygen Flow Rate 0 07/04/22 07:15 Pain Level 3 07/04/22 09:45 Intake & Output 07/03/22 07/04/22 07/04/22 23:59 11:59 23:59 Intake Total 450.667 / 929.786 2657.333 / 1827.333 Output Total 7000 / 7000 2650 / 2650 Balance -6549.333 / -6049.333 -822.667 / -822.667 Weight 72.575 kg Intake: IV 450.667 / 073.460 8595.333 / 1327.333 Oral 500 / 500 Output: Urine 7000 / 7000 2650 / 2650 Other: Urine Color [place] Pale Urine Appearance Clear Clear Urine Odor Normal Comment pt ambulated and tolerated well. infusion rate is moderate w/very light pink drainage noted. one small clot present to tube after ambulating. pt voices no c/o pain at this time irrigated with 30 cc of NS due to pt discomfort and bladder scan of 280, urine flushed immediately with no pain Voiding Methods Indwelling Catheter Data Completed and Pending Labs on day of discharge: Labs from last 24 hours 07/04/22 07/04/22 06:00 06:00 WBC 9.92 RBC 3.58 L Hgb 10.7 L Hct 32.2 L MCV 90 MCH 29.9 MCHC 33.2 RDW 12.9 Plt Count 141 MPV 10.3 Immature Gran % 0.3 Neutrophils % 76.4 Lymphocytes % 16.7 Monocytes % 5.6 Eosinophils % 0.9 Basophils % 0.1 Nucleated RBC % 0.0 Absolute Neutrophils 7.57 H Absolute Lymphocytes 1.66 Absolute Monocytes 0.56 Absolute Eosinophils 0.09 Absolute Basophils 0.01 Sodium 143 Potassium 4.1 Chloride 110 H Carbon Dioxide 29.9 Anion Gap 3.1 BUN 17 Creatinine 1.0 Est GFR (CKD-EPI 2020) 76.08 Glucose 109 H Calcium 8.4 L PFSH All Active Problems Actinic keratoses (Acute) COVID (Acute 03/09/22) positive home test 06/11/22 Nail dystrophy (Acute) Microscopic hematuria (Acute) Recurrent UTI (urinary tract infection) (Acute) Frequency of micturition (Acute) Urge incontinence of urine (Chronic) Chronic kidney disease, stage 3a (Chronic) Insomnia (Chronic) Nocturia (Chronic) Hypertension (Chronic) Pure hypercholesterolemia (Chronic 08/21/12) 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 05/03/20 F/U Derm, return in 6 mos. 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) 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/23/15) Dupuytren's contracture of left hand 06/09/20[facility] [place] (left 3rd and 4th fingers) Mass of right thigh Rosacea (06/05/17) Surgical History Colonoscopy - IV Sedation (07/18/13) Xiaflex therapy left hand [facility] (10/12/14) Family History Brother Prostate cancer Mother Mental disorder Anxiety Father Myocardial infarction Social History Smoking/Tobacco Use Status: Never Smoking risk assessment performed?: Yes Alcohol Intake: current Alcohol Intake frequency: 0-2 drinks per day Alcohol type: beer, wine and hard liquor Drug use: Never Substance use type: does not use Household members: spouse Housing: house Communication Needs: Corrective Lenses current occupation: professor What is your relationship status?: Panel score (0-1 are the most socially isolated patients): 1 What type of physical activity do you participate in: walking Frequency: 3-[address] intox or ride w/intox courier driver: No Working smoke detector in home: Yes Carbon monox detector in home: Yes Do you feel safe at home: Yes Do you feel safe in your relationship?: Yes Additional Social history: unable to assess privately-07/03/22 mkb Time Spent with Patient Time Spent with Patient: <45 minutes Time was spent: care coordination
--- NOTE | 2022-07-04 14:35 | NUR.NOTE ---
Nursing Note: extensive leg bag teaching given. Pt taught how to use alcohol swabs to clean the ends of the tubing, how to change from a leg bag to a larger night bag, to wash hands before and after changing bags, how to clean the inside of the bags, how to open the bags to drain them. Pt's present. Pt provided with spare caps and plugs, a spare leg bag, a spare overnight bag, and alcohol swabs.
== END 2022-07-04 15:16 | disposition home or self-care (01) | DRG 713 ==
LOC: PDS 07:31 → MS 12:16
PROVIDERS: Admitting Provider Urology; PCP Nurse Practitioner Adult Health; Visit Provider Urology
PROC: 0VT08ZZ Resection of Prostate, Via Natural or Artificial Opening Endoscopic (ICD-10-PCS; CPT 52601; principal; 2022-07-03 08:30)
DX: C84.A0 Cutaneous T-cell lymphoma, unspecified, unspecified site (principal); N39.0 Urinary tract infection, site not specified; F33.9 Major depressive disorder, recurrent, unspecified; N40.1 Benign prostatic hyperplasia with lower urinary tract symptoms; R35.1 Nocturia; N39.41 Urge incontinence; R35.0 Frequency of micturition; B96.20 Unspecified Escherichia coli [E. coli] as the cause of diseases classified elsewhere; Z86.16 Personal history of COVID-19; R31.29 Other microscopic hematuria; Z87.440 Personal history of urinary (tract) infections; N18.31 Chronic kidney disease, stage 3a; G47.00 Insomnia, unspecified; I12.9 Hypertensive chronic kidney disease with stage 1 through stage 4 chronic kidney disease, or unspecified chronic kidney disease; E78.00 Pure hypercholesterolemia, unspecified; M48.061 Spinal stenosis, lumbar region without neurogenic claudication; F41.9 Anxiety disorder, unspecified; J30.9 Allergic rhinitis, unspecified; C61 Malignant neoplasm of prostate
CPT/HCPCS: 52601; 36415; 80048; 87635; 88305; 85025; J0690; J1100; J1885; J2250; J2405; J3010

== ENCOUNTER 2022-07-04 21:41 | Emergency (ER) | payer MEDICARE, OTHER, SELFPAY ==
[2022-07-04 21:45] VITALS: BP 136/67; PULSE 72; RESP 16; TEMP 36.2; O2SAT 96
[2022-07-04 22:13] VITALS: BP 147/68; PULSE 70; RESP 18; TEMP 36.7; O2SAT 98
--- NOTE | 2022-07-04 22:15 | ED.GENADUL_ITS ---
Discharge Plan Disposition Patient Disposition: Home Discharge Details Chief Complaint: Urinary Clinical Impression: Dislodged Leon catheter Primary Care Provider: Luana Willis ED Provider: Jimy Marcano Home Meds and New Rx's Prescriptions: No Action acetaminophen [Tylenol Extra Strength] 500 mg tablet 1,000 mg PO Q6H PRN Patient Comments: for walking Rx Instructions: takes 100 mg daily. 04/27/20 cgc docusate sodium 100 mg capsule 100 mg PO DAILY PRN clobetasol 0.05 % ointment See Rx Instructions TP .COMPLEX PRN Rx Instructions: 01/2021: apply for 2 wks, none for 2 wks, apply for 2 wks, none for 2 wks. trazodone 150 mg tablet See Rx Instructions PO QHS PRN (Reason: insomnia) Patient Comments: 12/23/21- pt reports taking 300 mg po at HS. Rx Instructions: 1-2 tabs PO every day at bedtime PRN; 01/2021: 2.5 tabs qhs prn sleep lorazepam 1 mg tablet 1 mg PO Q6H PRN Rx Instructions: note dated 01/13/19 [facility] [place], Deejay Moody MD hydrochlorothiazide 12.5 mg tablet 12.5 mg PO QAM Qty: 90 3RF atorvastatin 20 mg tablet 20 mg PO DAILY Qty: 90 3RF Myrbetriq 25 mg tablet extended release 24 hr 25 mg PO DAILY Qty: 90 4RF betamethasone dipropionate 0.05 % ointment 1 applic topical BID Rx Instructions: Apply twice daily for the first 15 days of the month (L arm, abdomen, popliteal fossae, buttocks, low back) betamethasone dipropionate topical Rx Instructions: Use twice daily on the first 15 days on the month in place of Clobetasol. tamsulosin 0.4 mg capsule See Rx Instructions .ROUTE .COMPLEX Qty: 180 3RF Dose Instruction: TAKE 2 CAPSULES DAILY FOR NOCTURIA (DOSE IS ACTUALLY 0.8MG DAILY RATHER THAN 0.4MG DAILY) Rx Instructions: TAKE 2 CAPSULES DAILY FOR NOCTURIA (DOSE IS ACTUALLY 0.8MG DAILY RATHER THAN 0.4MG DAILY) PreserVision AREDS 7,160 unit- 113 mg-100 unit Tablet 2 tab PO BID gabapentin 600 mg tablet 600 mg PO TID PRN nitrofurantoin monohyd/m-cryst 100 mg capsule 100 mg PO Q12H 5 Days Qty: 10 0RF Rx Instructions: must administer with a meal/food Discharge Instructions Instructions: Transurethral Prostatectomy (DC) Additional Instructions: Please follow-up with urology team as scheduled. Please return to the emergency department for any worsening symptoms. Medical Decision Making 81-year-old male several hours post TURP presents after urinary catheter d islodgment this evening when going to bed, no pain or bleeding at urethral meatus, patient is voiding spontaneously at bedside does not have any abdominal distention or pain. Is afebrile nontoxic. Given recent TURP I will not blindly place Leon catheter at bedside as patient is not acutely obstructed. I will attempt to touch base with urology team to see if they would like to have patient return for repeat trial of voiding or to be seen in clinic tomorrow. 22: 31 patient resting comfortably no acute distress. Bladder scan showing 33 cc of urine in bladder. Discussed case with Dr. Jackson of urology who is comfortable leaving catheter out. Patient will follow-up with his scheduled appointment. Given home care instructions and return precautions. HPI General Date/Time Provider Initiated Documentation: 07/04/22 21:50 . HPI Narrative: 81-year-old male presents several hours postop from TURP, was going to bed this evening when his Leon catheter became dislodged. Endorses that the balloon was not inflated, denies penile or urethral pain. Denies bleeding. Denies ab dominal distention or pain Related Data Home Medications Medication Instructions Recorded Confirmed lorazepam 1 mg tablet 1 mg PO Q6H PRN 02/04/19 07/03/22 acetaminophen 500 mg tablet 1,000 mg PO Q6H PRN 04/27/20 06/30/22 (Tylenol Extra Strength) vitamins A,C,D-yqxa-xatbmh 2,148 2 tab PO BID 07/01/20 07/03/22 mcg-113 mg-45 mg-17.4 mg tablet (PreserVision AREDS) clobetasol 0.05 % topical ointment See Rx Instructions topical 02/02/21 07/03/22 .COMPLEX PRN docusate sodium 100 mg capsule 100 mg PO DAILY PRN 11/15/21 07/03/22 hydrochlorothiazide 12.5 mg tablet 12.5 mg PO QAM #90 tabs 12/14/21 07/03/22 trazodone 150 mg tablet See Rx Instructions PO QHS PRN 12/23/21 07/03/22 insomnia atorvastatin 20 mg tablet 20 mg PO DAILY #90 tabs 02/27/22 07/03/22 mirabegron 25 mg tablet,extended 25 mg PO DAILY #90 tabs 04/21/22 07/03/22 release 24 hr (Myrbetriq) betamethasone dipropionate 0.05 % 1 applic topical BID 05/11/22 07/03/22 topical ointment betamethasone dipropionate topical 05/25/22 05/25/22 tamsulosin 0.4 mg capsule See Rx Instructions .Route 05/29/22 07/03/22 .COMPLEX #180 caps gabapentin 600 mg tablet 600 mg PO TID PRN 07/03/22 07/03/22 nitrofurantoin 100 mg PO Q12H 5 days #10 caps 07/04/22 monohydrate/macrocrystals 100 mg capsule Previous Rx's Medication Instructions Recorded hydrochlorothiazide 12.5 mg tablet 12.5 mg PO QAM #90 tabs 12/14/21 atorvastatin 20 mg tablet 20 mg PO DAILY #90 tabs 02/27/22 mirabegron 25 mg tablet,extended 25 mg PO DAILY #90 tabs 04/21/22 release 24 hr (Myrbetriq) tamsulosin 0.4 mg capsule See Rx Instructions .Route 05/29/22 .COMPLEX #180 caps nitrofurantoin 100 mg PO Q12H 5 days #10 caps 07/04/22 monohydrate/macrocrystals 100 mg capsule Allergies Allergy/AdvReac Type Severity Reaction Status Date / Time lisinopril Allergy Intermediate SKIN RASH Verified 07/03/22 07:50 bupropion Allergy Mild SKIN RASH Verified 07/03/22 07:50 amlodipine AdvReac Intermediate EDEMA Verified 07/03/22 07:50 atenolol AdvReac Intermediate Decreased Verified 07/03/22 07:50 heart rate in 40's, palpitations losartan AdvReac Intermediate Increased Verified 07/03/22 07:50 creatinine sertraline AdvReac Intermediate CAUSED Verified 07/03/22 07:50 DEPRESSION General Stated Complaint: Urinary BRITTANY: 3 Review of Systems Narrative: Review of Systems Constitutional: negative Eyes: negative ENT: negative Cardiovascular: negative Respiratory: negative Gastrointestinal: negative : Leon catheter dislodgment Musculoskeletal: negative Skin: negative Neurologic: negative Psych: negative PFSH All Active Problems (Updated 07/04/22 @ 22:33 by Jimy Marcano MD) Dislodged Leon catheter (Acute) Actinic keratoses (Acute) COVID (Acute 03/09/22) positive home test 06/11/22 Nail dystrophy (Acute) Microscopic hematuria (Acute) Recurrent UTI (urinary tract infection) (Acute) Frequency of micturition (Acute) Urge incontinence of urine (Chronic) Chronic kidney disease, stage 3a (Chronic) Insomnia (Chronic) Nocturia (Chronic) Hypertension (Chronic) Pure hypercholesterolemia (Chronic 08/21/12) 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 05/03/20 F/U Derm, return in 6 mos. 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) 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/23/15) Dupuytren's contracture of left hand 06/09/20- [facility] [place] (left 3rd and 4th fingers) Mass of right thigh Rosacea (06/05/17) Surgical History Colonoscopy - IV Sedation (07/18/13) Xiaflex therapy left hand [facility] [place] (10/12/14) Family History Brother Prostate cancer Mother Mental disorder Anxiety Father Myocardial infarction Social History Smoking/Tobacco Use Status: Never Smoking risk assessment performed?: Yes Alcohol Intake: current Alcohol Intake frequency: 0-2 drinks per day Alcohol type: beer, wine and hard liquor Drug use: Never Substance use type: does not use Household members: spouse Housing: house Communication Needs: Corrective Lenses current occupation: professor What is your relationship status?: Panel score (0-1 are the most socially isolated patients): 1 What type of physical activity do you participate in: walking Frequency: 3-[address] intox or ride w/intox hazmat cdl driver: No Working smoke detector in home: Yes Carbon monox detector in home: Yes Do you feel safe at home: Yes Do you feel safe in your relationship?: Yes Additional Social history: unable to assess privately-07/03/22 mkb Exam Narrative Exam Narrative: Physical Examination General: alert, awake, cooperative, resting comfortably, no acute distress HEENT: normocephalic, atraumatic; PERRL, EOM intact, conjunctiva normal; no nasal discharge; moist mucous membranes, oral and pharyngeal mucosa normal, tolerating secretions Neck: supple, trachea midline; full ROM Chest: normal to inspection Respiratory: normal respiratory effort, speaking in full sentences, clear to auscultation, no wheezing, rales or rhonchi Cardiac: regular rate, regular rhythm, S1S2 intact, no murmurs rubs or gallops GI: abdomen soft, non-tender, non-distended; no palpable mass or hepatosplenomegaly : Normal external genitalia, normal urethral meatus, patient is voiding spontaneously, no blood at meatus, no abdominal distention Skin: no lesions, rashes or trauma appreciated Neuro: AAOx3, normal speech, moving all extremities Psych: Appropriate mood and affect Course Vital Signs Vital signs: Vital Signs Temperature 36.2 C L 07/04/22 21:45 Pulse 72 07/04/22 21:45 Respiratory Rate 16 07/04/22 21:45 Blood Pressure 136/67 07/04/22 21:45 Pulse Oximetry 96 07/04/22 21:45 Temperature 36.7 C 07/04/22 22:13 Temperature Source Oral 07/04/22 22:13 Pulse 70 07/04/22 22:13 Respiratory Rate 18 07/04/22 22:13 Respiratory Effort Normal, Non-Labored 07/04/22 22:08 Blood Pressure 147/68 H 07/04/22 22:13 Blood Pressure Position Supine 07/04/22 21:45 Pulse Oximetry 98 07/04/22 22:13 Oxygen Delivery Method Room Air 07/04/22 22:13 Oxygen Flow Rate 0 07/04/22 22:13 Pain Level 0 07/04/22 22:13 PAWSS Have you Been Recently Intoxicated or Drunk Within the Last 30 days?: No Have you Ever Experienced Previous Episodes of Alcohol Withdrawal?: No Have you ever Experienced Withdrawal Seizures?: No Have you ever Experienced Delirium Tremens(DT)s?: No Have you ever undergone Alcohol Rehabilitation Treatment (i.e, inpt ot outpatient treatment programs)?: No Have you ever Experienced Blackouts?: No Have you ever Combined Alcohol with other Downers within the last 90 days?: No Have you ever Combined Alcohol with any other Substance of Abuse during the last 90 days?: No Positive Blood Alcohol level on Presentation? [PCS.BAL]: No Evidence of Increased Autonomic Activity (i.e. HR>120, tremor, sweating, agitation, nausea)?: No Result: 0
== END 2022-07-04 22:42 | disposition home or self-care (01) ==
PROVIDERS: Emergency Provider Emergency Medicine; PCP Nurse Practitioner Adult Health
DX: T83.028A Displacement of other urinary catheter, initial encounter (principal)
CPT/HCPCS: 99281; 99282

== ENCOUNTER → 2022-07-07 14:56 | Outpatient (BNVA) | payer MEDICARE, OTHER, SELFPAY | PROVIDERS: PCP Nurse Practitioner Adult Health; Referring Provider Nurse Practitioner Adult Health; Visit Provider Urology | DX: C61 Malignant neoplasm of prostate (principal); Z90.79 Acquired absence of other genital organ(s) | CPT/HCPCS: 99214 ==

== ENCOUNTER → 2022-08-01 14:47 | Outpatient (BNVA) | payer MEDICARE, OTHER, SELFPAY | PROVIDERS: PCP Nurse Practitioner Adult Health; Referring Provider Nurse Practitioner Adult Health; Visit Provider Urology | DX: C61 Malignant neoplasm of prostate (principal) | CPT/HCPCS: 81003 ==

== ENCOUNTER 2022-08-01 16:27 | Outpatient (REF) | payer MEDICARE, OTHER, SELFPAY | END 2022-08-01 16:28 | disposition home or self-care (01) | LOC: LBN 16:27 | PROVIDERS: PCP Nurse Practitioner Adult Health; Referring Provider Family Medicine; Visit Provider Urology | DX: R31.29 Other microscopic hematuria (principal); N39.0 Urinary tract infection, site not specified | CPT/HCPCS: 87086 ==

== ENCOUNTER 2022-08-10 11:02 | Outpatient (CLI) | payer MEDICARE, OTHER, SELFPAY ==
--- NOTE | 2022-08-10 06:00 | DI.RAD_ITS ---
Exam(s) XR PAIN CLINIC LUMBAR SP 2V EXAM: XR PAIN CLINIC LUMBAR SP 2V CLINICAL HISTORY: DX: Lumbar Radiculopathy TECHNIQUE: 2D and realtime digital imaging was performed. CONTRAST MATERIAL: Refer to procedure report. COMPARISON: No exams were available for comparison FINDINGS: Fluoroscopy was provided for Dr. Nation during the performance of a lumbar epidural steroid injection. Please refer to the procedure report for complete details. Ka,r=6.29 mGy IMPRESSION:
[2022-08-10 11:11] VITALS: BP 140/73; PULSE 58; RESP 20; TEMP 36.3; O2SAT 96
[2022-08-10] MEDS: methylPREDNISolone ACETATE 80 MG/ML VIAL IJ (11:57)
[2022-08-10] MEDS: Omnipaque 240 MG/ML 50 ML BTL IJ (11:57)
[2022-08-10 11:58] VITALS: BP 139/77; PULSE 62; RESP 15; O2SAT 99
--- NOTE | 2022-08-10 12:32 | PDOC.PAIN ---
Date of service: 08/10/22 Time of Service: 12:00 Pain Managment Procedure Note Procedure Note Procedure Note: Lumbar Epidural Steroid Injection Procedure Note COMMENTS: He last had this proceder on 04/12/[address] Carias and had >3 Months of >70% pain relief. Dx: Lumbosacral radiculopathy Pre-procedure pain VAS was 6/10 Levon Carter has been referred to the [facility] for lumbar epidural steroid injection. The patient was greeted by the nurse who verified patients name and . Patient was then taken to the fluoroscopy suite. The patient was interviewed and the medial record reviewed. There were no medical, pharmacologic, radiographic, or other structural contraindications to attempting fluoroscopically guided lumbar epidural steroid injection. Risks and expected side effects as well as potential benefits of the procedure were reviewed and voiced concerns expressed. The patient consent form was signed and witnessed. Standard patient time-out procedure was performed. The patient was placed in the prone position on the fluoroscopy table and automated blood pressure cuff and pulse oximeter applied. The skin entry point for entering/approaching the epidural space at L5-S1 and marked. Following thorough chlorhexadine preparation of the skin and draping and 1% lidocaine infiltration of the skin entry point and subcutaneous tissues, a 18 gauge Touhy needle was placed under fluoroscopic guidance and with loss of resistance technique into the epidural space. Needle tip placement and depth were aided and confirmed by fluoroscopy. There was no paresthesia or return of blood or CSF through the needle. 1 cc's of Omnipaque 240 was injected with clear epidural spread confirmed with fluoroscopy. 80mg depomedrol was injected. There was not any unusual discomfort expressed by Levon Carter. Patient's vital signs were stable throughout the procedure and were as recorded in nursing records. Follow up plans and appointments were discussed with patient. Post procedure instruction was given as documented in nursing records and having met discharge criteria and was discharged from the [facility] Management [facility]. COMMENTS: If this procedure is helpful, it can be completed up to 4 times per 12 months. Post-procedure pain VAS was 0/10. Jameel Nation DO, MPH [facility]-Pain Management [facility]
== END 2022-08-10 11:03 | disposition home or self-care (01) ==
LOC: PC 11:02
PROVIDERS: PCP Nurse Practitioner Adult Health; Visit Provider Preventive Medicine Occupational Medicine
DX: M54.17 Radiculopathy, lumbosacral region (principal); M54.50 Low back pain, unspecified
CPT/HCPCS: 62323; 72100; J1040; Q9967

== ENCOUNTER → 2022-09-07 13:31 | Outpatient (BNVA) | payer MEDICARE, OTHER, SELFPAY | PROVIDERS: PCP Nurse Practitioner Adult Health; Visit Provider Urology | DX: C61 Malignant neoplasm of prostate (principal); Z48.816 Encounter for surgical aftercare following surgery on the genitourinary system | CPT/HCPCS: 36415; 81003 ==

== ENCOUNTER 2022-09-07 13:55 | Outpatient (REF) | payer MEDICARE, OTHER, SELFPAY ==
[2022-09-08 20:30] LABS: PSA, Diagnostic 0.2 ng/mL (<=6.5)
== END 2022-09-07 13:56 | disposition home or self-care (01) ==
LOC: LBN 13:55
PROVIDERS: PCP Nurse Practitioner Adult Health; Visit Provider Urology
DX: C61 Malignant neoplasm of prostate (principal)
CPT/HCPCS: 84153

== ENCOUNTER 2022-10-13 01:25 | Outpatient (CLI) | payer MEDICARE, OTHER, SELFPAY ==
[2022-10-13 11:03] LABS: HCT 41.1 % (40.0-50.0); HGB 13.7 g/dL (13.5-17.5); MCH 29.5 pg (27.0-33.0); MCHC 33.3 % (32.0-36.0); MCV 89 fL (80-95); MPV 9.3 fL (8.0-11.0); Platelet Count 174 10^3/uL (130-400); RBC 4.64 10^6/uL (4.36-5.78); RDW 12.8 % (11.8-14.1); RDW-SD 41.7 fL
[2022-10-13 11:37] LABS: Anion Gap 4.8 mmol/L (3-11); BUN 19 mg/dL (7-18); CO2 32.2 mmol/L (21.0-32.0); CREATININE 1.2 mg/dL (0.70-1.30); Chloride 99 mmol/L (98-107); Creatine Kinase 80 U/L (39-308); Estimated GFR 61.13 (mL/min/1.73m2); Glucose 91 mg/dL (74-106); Potassium 3.7 mmol/L (3.5-5.1); Sodium 136 mmol/L (136-145); TSH (W/Ref FT4) 1.83 uIU/mL (0.36-3.74)
[2022-10-13 12:14] LABS: Calculated LDL 65 mg/dL (<100); Cholesterol 144 mg/dL (<200); Folate 9.9 ng/mL (8.6-20.0); HDL Cholesterol 73 mg/dL (40-60); Triglyceride 31 mg/dL (<150); Vitamin B12 365 pg/mL (193-986)
[2022-10-16 10:22] LABS: Prealbumin 25 mg/dL (20-40)
== END 2022-10-13 01:26 | disposition home or self-care (01) ==
PROVIDERS: PCP Nurse Practitioner Adult Health; Visit Provider Nurse Practitioner Adult Health
DX: R53.1 Weakness (principal); R68.89 Other general symptoms and signs; D64.9 Anemia, unspecified; E78.00 Pure hypercholesterolemia, unspecified; I10 Essential (primary) hypertension; N18.31 Chronic kidney disease, stage 3a; N52.9 Male erectile dysfunction, unspecified; J30.9 Allergic rhinitis, unspecified
CPT/HCPCS: 36415; 80048; 80061; 82550; 85027; 82607; 82746; 83735; 84134; 84443

== ENCOUNTER 2022-11-16 01:06 | Outpatient (CLI) | payer MEDICARE, OTHER, SELFPAY ==
--- NOTE | 2022-11-16 06:53 | DI.MRI_ITS ---
Exam(s) MR LUMBAR SPINE WO EXAM: MR LUMBAR SPINE WO CLINICAL HISTORY: ? cauda equina, new urinary incontinence, leg weakness, degen lumbar stenos. TECHNIQUE: Multiplanar multisequence MRI of the Lumbar spine was performed. COMPARISON: CR BILATERAL HIPS ADULT from 09/12/2016 MR MRI - LUMBAR SPINE WO CONTRAST from 10/04/2016 MR MR lumbar spine wo from 08/29/2018 MR MR LUMBAR SPINE WO from 05/18/2021 FINDINGS: Bones: The last intervertebral disc space is designated the L5/S1 level for the numbering purpose of this examination. The vertebral body heights are well maintained. Mild dextroscoliosis secondary to asymmetric disc space narrowing, greater on the left side. The marrow signal characteristics are un remarkable. Cord: The conus tip ends at the T12 level. It is of normal size and signal intensity. A 6 millimet er maximal dimension nodule is again noted unchanged from prior exams. It is isointense to cord sign al. T12-L1: No disc herniations or bulges are present. No central spinal canal or neural foraminal stenos is. L1-2: Severe loss of disc height. Circumferentially projecting osteophytes. Bilateral neural forami nal narrowing. Central canal stenosis. L2-3: Severe loss of disc height. Broad-based endplate osteophytes. Severe left neural foraminal na rrowing. Left-sided facet degenerative changes. No central canal stenosis. L3-4: Severe loss of disc height. Broad-based endplate osteophytes. Facet degenerative changes and ligamentous hypertrophy. Severe left neural foraminal narrowing. No significant central canal steno sis. L4-5: Moderate loss of disc height. Broad-based endplate osteophytes. Bilateral facet degenerative changes and ligamentous hypertrophy cause mild to moderate central canal stenosis as well as bilatera l neural foraminal narrowing. L5-S1: Mild loss of disc height. Small endplate osteophytes. Facet degenerative changes greater on the right. Mild right neural foraminal narrowing. No central canal stenosis. The visualized SI joints and sacrum are well maintained. Soft tissues: The paraspinal soft tissues are unremarkable. IMPRESSION: Advanced degenerative disc changes facet degenerative changes causing [id number] central canal stenosis at L4-5. Multilevel neural foraminal narrowing again noted. Findings not significantly kathya nged from prior exam. Stable small nodule at the conus medullaris compared with 2017. DATA REPOSITORY:
== END 2022-11-16 01:26 ==
LOC: DI 01:10
PROVIDERS: PCP Nurse Practitioner Adult Health; Visit Provider Nurse Practitioner Adult Health
DX: M48.061 Spinal stenosis, lumbar region without neurogenic claudication (principal); N39.44 Nocturnal enuresis; R29.898 Other symptoms and signs involving the musculoskeletal system
CPT/HCPCS: 72148

== ENCOUNTER 2022-12-05 04:41 | Outpatient (CLI) | payer MEDICARE, OTHER, SELFPAY ==
[2022-12-06 21:54] LABS: PSA, Diagnostic 0.2 ng/mL (<=6.5)
== END 2022-12-05 04:42 | disposition home or self-care (01) ==
LOC: LBO 04:41
PROVIDERS: PCP Nurse Practitioner Adult Health; Visit Provider Urology
DX: C61 Malignant neoplasm of prostate (principal)
CPT/HCPCS: 36415; 84153

== ENCOUNTER → 2022-12-12 13:48 | Outpatient (BNVA) | payer MEDICARE, OTHER, SELFPAY | PROVIDERS: PCP Nurse Practitioner Adult Health; Visit Provider Urology | DX: R32 Unspecified urinary incontinence (principal); C61 Malignant neoplasm of prostate | CPT/HCPCS: 81003; 99214 ==

== ENCOUNTER 2022-12-13 15:38 | Outpatient (CLI) | payer MEDICARE, OTHER, SELFPAY ==
--- NOTE | 2022-12-13 06:00 | DI.RAD_ITS ---
Exam(s) XR PAIN CLINIC LUMBAR SP 2V EXAM: XR PAIN CLINIC LUMBAR SP 2V CLINICAL HISTORY: Dx: Lumbar Radiculopathy TECHNIQUE: 2D and realtime digital imaging was performed. CONTRAST MATERIAL: Refer to procedure report. COMPARISON: No exams were available for comparison FINDINGS: Fluoroscopy was provided for Dr. Nation for pain management therapy. Please refer to the procedure re port for complete details. Ka,r=4.58 mGy IMPRESSION:
[2022-12-13 16:35] VITALS: BP 141/82; PULSE 58; RESP 20; TEMP 36.7; O2SAT 96
[2022-12-13] MEDS: methylPREDNISolone ACETATE 80 MG/ML VIAL IJ (17:12)
[2022-12-13] MEDS: Omnipaque 240 MG/ML 50 ML BTL IJ (17:13)
[2022-12-13 17:17] VITALS: BP 139/74; PULSE 62; RESP 15; O2SAT 97
--- NOTE | 2022-12-19 06:46 | PDOC.PAIN_ITS ---
Date of service: 12/13/22 Time of Service: 17:30 Pain Managment Procedure Note Procedure Note Procedure Note: PROCEDURE NOTE CAUDAL EPIDURAL STEROID INJECTION Date of Service: December 13, 2022 Patient:Levon Jiménez? Provider:? Grady De La Cruz DO, MPH Levon Carter has been referred to the [facility] Management [facility] for caudal epidural steroid injection.? Pre-operative diagnosis: Lumbosacral Radiculopathy Post-operative diagnosis: Same Pre-Procedure Pain: VAS= 6/10. COMMENTS: His last caudal BRITTANY allowed him >4 months of >50% pain improvement and he was also far more functional. Rabiawas interviewed and the medical record was reviewed.? There were no medical, pharmacologic, radiographic or other structural contraindications to attempting fluoroscopically guided epidural steroid injection.? Risks and expected side effects as well as potential benefit of the procedure were reviewed with Rabia, and the patient's voiced concerns were addressed.? The printed consent form was signed.? Standard time-out procedure was performed. Rabia was placed in the prone position on the fluoroscopy table and automated blood pressure cuff and pulse oximeter applied.? The skin entry point for entering/approaching the epidural space by a caudal approach through the sacral hiatus ed identified with surgical skin marking.? Following thorough chlorhexidine preparation of the skin and draping and 1% lidocaine infiltration of the skin entry point and subcutaneous tissues, a 17 gauge Touhy needle was placed under fluoroscopic guidance? into the epidural space. Needle tip placement and depth were aided and confirmed by fluoroscopy in the lateral and AP position. There was no paresthesia or return of blood or CSF through the needle. 1 cc of Omnipaque 240 was injected with clear epidural spread confirmed with fluoroscopy. An Arrow 19G radio-opaque epidural catheter was advanced into the epidural space to the L5-S1 level and 2 cc of Omnipaque 240 was injected with clear epidural spread. 80 mg of Depo-Medrol was? injected. There was no unusual discomfort expressed by Levon. The needle and catheter were then flushed with 1 cc of 1% Lidocaine and they were removed together without difficulty (49 cc of Omnipaque was wasted). Levon was observed and was without hemodynamic, neurologic, or allergic reactions.? Fluoroscopic images were digitally archived. Levon's vital signs were stable throughout the procedure and were as recorded in the docflowsheet by the nursing staff.? If given, dosages of intravenous drugs for anxiolysis and analgesia were documented in MAR. Follow up plans and appointments were discussed with Levon.? Post procedure instruction was given as documented in nursing documentation and having met linda anderson criteria, Levon was discharged from the [facility]. ? COMMENTS: No apparent complications.? Post-procedure pain: VAS= 0/10. If the patient receives at least 50% improvement in pain and/or function for at least 3 months, this procedure can be repeated. I personally completed the entire procedure. GRADY DE LA CRUZ DO, MPH ABPM&R - Subspecialty board certification in Pain Medicine [facility] [facility]
== END 2022-12-13 15:39 | disposition home or self-care (01) ==
LOC: PC 15:38
PROVIDERS: PCP Nurse Practitioner Adult Health; Visit Provider Preventive Medicine Occupational Medicine
DX: M54.50 Low back pain, unspecified (principal); M54.17 Radiculopathy, lumbosacral region
CPT/HCPCS: 62323; 72100; J1040; Q9967

== ENCOUNTER 2023-03-20 02:01 | Outpatient (CLI) | payer MEDICARE, OTHER, SELFPAY ==
[2023-03-20 17:28] LABS: Anion Gap 5.2 mmol/L (3-11); BUN 23 mg/dL (7-18); CO2 29.8 mmol/L (21.0-32.0); CREATININE 1.3 mg/dL (0.70-1.30); Chloride 105 mmol/L (98-107); Estimated GFR 55.19 (mL/min/1.73m2); Glucose 100 mg/dL (74-106); Potassium 4.3 mmol/L (3.5-5.1); Sodium 140 mmol/L (136-145)
[2023-03-21 19:11] LABS: PSA, Diagnostic 0.3 ng/mL (<=6.5)
== END 2023-03-20 02:02 | disposition home or self-care (01) ==
LOC: LBO 02:01
PROVIDERS: PCP Nurse Practitioner Adult Health; Visit Provider Urology
DX: C61 Malignant neoplasm of prostate (principal); N18.31 Chronic kidney disease, stage 3a
CPT/HCPCS: 36415; 80048; 84153

== ENCOUNTER 2023-03-22 08:28 | Outpatient (CLI) | payer MEDICARE, OTHER, SELFPAY ==
--- NOTE | 2023-03-22 06:00 | DI.RAD_ITS ---
Exam(s) XR PAIN CLINIC LUMBAR SP 2V EXAM: XR PAIN CLINIC LUMBAR SP 2V CLINICAL HISTORY: DX: Lumbar radiculopathy TECHNIQUE: 2D and realtime digital imaging was performed. Radiologist not present. CONTRAST MATERIAL: None. COMPARISON: No exams were available for comparison FINDINGS: Fluoroscopy was provided for pain management therapy. Please refer to procedure report or details. Radiation Exposure Index: Ka,r=5.97 mGy IMPRESSION: As above. RADIATION DOSE DELIVERED:
[2023-03-22 08:38] VITALS: BP 168/92; PULSE 60; RESP 20; TEMP 36.7; O2SAT 97
[2023-03-22 09:21] VITALS: BP 153/94; PULSE 65; RESP 18; O2SAT 100
[2023-03-22] MEDS: methylPREDNISolone ACETATE 80 MG/ML VIAL IJ (09:22)
[2023-03-22] MEDS: Omnipaque 240 MG/ML 50 ML BTL IJ (09:22)
--- NOTE | 2023-03-22 13:15 | PDOC.PAIN_ITS ---
Date of service: 03/22/23 Time of Service: 10:00 Pain Managment Procedure Note Procedure Note Procedure Note: PROCEDURE NOTE LUMBAR EPIDURAL STEROID INJECTION Date of Service: March 22, 2023 Patient:Levon Anton? Provider: Jameel Nation DO, MPH Levon Carter has been referred to the [facility] Management Center for a lumbar epidural steroid injection. Pre-operative diagnosis: Lumbosacral Radiculopathy Post-operative diagnosis: Same Pre-Procedure Pain: VAS= 7 /10 Comments: His last BRITTANY was 12/13/22 and he had >3 months of >50% pain relief with this procedure. Levon was interviewed and the medical record was reviewed.? There were no medical, pharmacologic, radiographic or other structural contraindications to attempting fluoroscopically guided Lumbar epidural steroid injection.? Risks, potential side effects, indications, and potential benefits of the procedure were reviewed with Levon.? Questions and concerns were addressed.? After it was clear that Levon was fully informed about the procedure, the printed consent form was signed by the patient and myself.? Levon was placed in the prone position on the fluoroscopy table and automated blood pressure cuff and pulse oximeter applied. The skin entry point for entering/approaching the epidural space for the lumbar epidural steroid injection was marked. Following thorough chlorhexadine preparation of the skin and draping and 1% lidocaine infiltration of the skin entry point and subcutaneous tissues, an 18 gauge Touhy needle was placed and advanced under fluoroscopic guidance and with loss of resistance technique into the L5-S1 epidural space. Needle tip placement and depth were aided and confirmed by fluoroscopy. There was no paresthesia or return of blood or CSF through the needle. 1 mls of Omnipaque 240 was injected with clear epidural spread confirmed with fluoroscopy. 80 mg of Depo-Medrol was? injected. This was followed by 1 ml of preservative-free normal saline to flush the steroid out of the needle. There was no unusual discomfort expressed by Levon. The needle was withdrawn without difficulty. (49 mls of Omnipaque was wasted) Levon was observed and was without hemodynamic, neurologic, or allergic reactions.? Fluoroscopic images were digitally archived. Levon's vital signs were stable throughout the procedure and were as recorded in nursing records. Follow up plans and appointments were discussed with Levon. Post procedure instruction was given as documented in nursing records and having met discharge criteria Levon was discharged from the Pain Management Center. COMMENTS: No apparent complications. Post-procedure pain: VAS= 1/10. Levon to contact [facility] as needed. If at least 50% improvement in pain and/or function for at least 3 months is achieved, this procedure can be repeated. He will call back in 1 month. His pain seems to be more in his low back and less in the legs. If this trend continues, we might consider LMBBs +/- RFA in the future. I did give him handouts on these procedure and discussed this at length. He understands. I personally performed this entire procedure. JAMEEL NATION DO, MPH ABPMR-subspecialty board certification in Pain Medicine [facility]
== END 2023-03-22 08:29 | disposition home or self-care (01) ==
LOC: PC 08:28
PROVIDERS: PCP Nurse Practitioner Adult Health; Visit Provider Preventive Medicine Occupational Medicine
DX: M54.50 Low back pain, unspecified (principal); M54.17 Radiculopathy, lumbosacral region
CPT/HCPCS: 00123; 62323; 72100; J1040; Q9967

== ENCOUNTER → 2023-03-27 14:15 | Outpatient (BNVA) | payer MEDICARE, OTHER, SELFPAY | PROVIDERS: PCP Nurse Practitioner Adult Health; Visit Provider Urology | DX: Z85.46 Personal history of malignant neoplasm of prostate (principal) | CPT/HCPCS: 81003; 99213 ==

== ENCOUNTER 2023-06-26 04:23 | Outpatient (CLI) | payer MEDICARE, OTHER, SELFPAY ==
[2023-06-26 17:11] LABS: Anion Gap 10.9 mmol/L (3-11); BUN 31 mg/dL (7-18); CO2 26.1 mmol/L (21.0-32.0); CREATININE 1.7 mg/dL (0.70-1.30); Calcium 8.9 mg/dL (8.5-10.1); Chloride 101 mmol/L (98-107); Glucose 82 mg/dL (74-106); Sodium 138 mmol/L (136-145)
[2023-06-27 20:50] LABS: PSA, Diagnostic 0.3 ng/mL (<=6.5)
== END 2023-06-26 04:24 | disposition home or self-care (01) ==
LOC: LBO 04:24
PROVIDERS: PCP Nurse Practitioner Adult Health; Visit Provider Urology
DX: C61 Malignant neoplasm of prostate (principal); I10 Essential (primary) hypertension; N18.30 Chronic kidney disease, stage 3 unspecified; Z51.81 Encounter for therapeutic drug level monitoring
CPT/HCPCS: 36415; 80048; 84153

== ENCOUNTER → 2023-07-03 14:17 | Outpatient (BNVA) | payer MEDICARE, OTHER, SELFPAY | PROVIDERS: PCP Nurse Practitioner Adult Health; Visit Provider Urology | DX: N40.1 Benign prostatic hyperplasia with lower urinary tract symptoms (principal); R35.0 Frequency of micturition; R35.1 Nocturia; N52.9 Male erectile dysfunction, unspecified; C60.1 Malignant neoplasm of glans penis | CPT/HCPCS: 81003; 99214 ==

== ENCOUNTER → 2023-07-05 01:24 | Outpatient (CLI) | payer MEDICARE, OTHER, SELFPAY ==
--- NOTE | 2023-07-05 07:45 | DI.US_ITS ---
Exam(s) US RENAL EXAM: US RENAL CLINICAL HISTORY: ? hydronephrosis,ELEVATED CREATININE,R79.89. TECHNIQUE: [place] scale, color and spectral Doppler were used. COMPARISON: CT CT ABDOMEN PELVIS WO/W from 02/27/2022 FINDINGS: Renal size in cm: Right: 9.6 left: 9.2 Echogenicity: Normal Hydronephrosis: No Cyst or mass: 1.7 centimeter cyst upper pole left kidney. Unchanged from prior CT. Nephrolithiasis: No Bladder:Normal. Prevoid vol:87 cc Postvoid vol:7 cc IMPRESSION: No evidence of hydronephrosis. DATA REPOSITORY:
== END ==
PROVIDERS: PCP Nurse Practitioner Adult Health; Visit Provider Urology
DX: R79.89 Other specified abnormal findings of blood chemistry (principal)
CPT/HCPCS: 76770

== ENCOUNTER 2023-07-05 12:22 | Outpatient (CLI) | payer MEDICARE, OTHER, SELFPAY ==
[2023-07-05 12:05] LABS: Creatine Kinase 88 U/L (39-308)
== END 2023-07-05 12:23 | disposition home or self-care (01) ==
LOC: LBO 12:22
PROVIDERS: PCP Nurse Practitioner Adult Health; Visit Provider Nurse Practitioner Adult Health
DX: R29.898 Other symptoms and signs involving the musculoskeletal system (principal)
CPT/HCPCS: 36415; 76770; 82550

== ENCOUNTER 2023-07-12 10:14 | Outpatient (CLI) | payer MEDICARE, OTHER, SELFPAY ==
[2023-07-12 10:23] VITALS: BP 122/74; PULSE 61; RESP 20; TEMP 36.7; O2SAT 98
--- NOTE | 2023-07-12 10:51 | PDOC.PAIN_ITS ---
Date of service: 07/12/23 Time of Service: 10:51 Pain Managment Procedure Note Procedure Note Procedure Note: PROCEDURE NOTE LUMBAR EPIDURAL STEROID INJECTION Date of Service: July 12, 2023 Patient:Levon Anton? Provider: Jameel De La Cruz DO, MPH Levon Carter has been referred to the [facility] for a lumbar epidural steroid injection. Pre-operative diagnosis: Lumbosacral Radiculopathy Post-operative diagnosis: Same Pre-Procedure Pain: VAS= 2/10 Comments: He has had this procedure numerous times. He received >50% pain relief for >3 months with his last LESI. Levon was interviewed and the medical record was reviewed.? There were no medical, pharmacologic, radiographic or other structural contraindications to attempting fluoroscopically guided Lumbar epidural steroid injection.? Risks, potential side effects, indications, and potential benefits of the procedure were reviewed with Levon.? Questions and concerns were addressed.? After it was clear that Levon was fully informed about the procedure, the printed consent form was signed by the patient and myself.? Levon was placed in the prone position on the fluoroscopy table and automated blood pressure cuff and pulse oximeter applied. The skin entry point for entering/approaching the epidural space for the lumbar epidural steroid injection was marked. Following thorough chlorhexadine preparation of the skin and draping and 1% lidocaine infiltration of the skin entry point and vaughan bcutaneous tissues, an 18 gauge Touhy needle was placed and advanced under fluoroscopic guidance and with loss of resistance technique into the L5-S1 epidural space. Needle tip placement and depth were aided and confirmed by fluoroscopy. There was no paresthesia or return of blood or CSF through the needle. 1 mls of Omnipaque 240 was injected with clear epidural spread confirmed with fluoroscopy. 80 mg of Depo-Medrol was? injected. This was followed by 1 ml of preservative-free normal saline to flush the steroid out of the needle. There was no unusual discomfort expressed by Levon. The needle was withdrawn without difficulty. (49 mls of Omnipaque was wasted) Levon was observed and was without hemodynamic, neurologic, or allergic reactions.? Fluoroscopic images were digitally archived. Levon's vital signs were stable throughout the procedure and were as recorded in nursing records. Follow up plans and appointments were discussed with Levon. Post procedure instruction was given as documented in nursing records and having met discharge criteria Levon was discharged from the [facility]. COMMENTS: No apparent complications. Post-procedure pain: VAS= 0/10. Levon to contact [facility] as needed. If at least 50% improvement in pain and/or function for at least 3 months is achieved, this procedure can be repeated. I personally performed this entire procedure. JAMEEL DE LA CRUZ DO, MPH ABPMR-subspecialty board certification in Pain Medicine [facility]
--- NOTE | 2023-07-12 10:53 | DI.RAD_ITS ---
Exam(s) XR PAIN CLINIC LUMBAR SP 2V EXAM: XR PAIN CLINIC LUMBAR SP 2V CLINICAL HISTORY: DX: Lumbar Radiculopathy TECHNIQUE: 2D and realtime digital imaging was performed. CONTRAST MATERIAL: Refer to procedure report. COMPARISON: No exams were available for comparison FINDINGS: Fluoroscopy was provided for Dr. Nation during the performance of a lumbar epidural steroid injection. Please refer to the procedure report for complete details. Ka,r=4.15 mGy IMPRESSION: RADIATION DOSE DELIVERED: 0.0 0.0 0
[2023-07-12 10:55] VITALS: BP 137/78; PULSE 67; RESP 17; O2SAT 99
[2023-07-12] MEDS: Omnipaque 240 MG/ML 50 ML BTL IJ (10:56)
[2023-07-12] MEDS: methylPREDNISolone ACETATE 80 MG/ML VIAL IJ (10:56)
[2023-07-12] MEDS: Epidural Tray 1 EACH MC (10:56)
== END 2023-07-12 10:15 | disposition home or self-care (01) ==
LOC: PC 10:14
PROVIDERS: PCP Nurse Practitioner Adult Health; Visit Provider Preventive Medicine Occupational Medicine
DX: M54.50 Low back pain, unspecified (principal); M54.17 Radiculopathy, lumbosacral region
CPT/HCPCS: 00123; 62323; 72100; J1040; Q9967

== ENCOUNTER → 2023-07-13 13:45 | Outpatient (BNVA) | payer MEDICARE, OTHER, SELFPAY | PROVIDERS: PCP Nurse Practitioner Adult Health; Referring Provider Nurse Practitioner Adult Health; Visit Provider Urology | DX: R79.89 Other specified abnormal findings of blood chemistry (principal) | CPT/HCPCS: 81003; 99213 ==

== ENCOUNTER 2023-10-02 04:55 | Outpatient (CLI) | payer MEDICARE, OTHER, SELFPAY ==
[2023-10-02 18:52] LABS: PSA, Diagnostic 0.3 ng/mL (<=6.5)
== END 2023-10-02 04:56 | disposition home or self-care (01) ==
LOC: LBO 04:55
PROVIDERS: PCP Nurse Practitioner Adult Health; Visit Provider Urology
DX: C61 Malignant neoplasm of prostate (principal)
CPT/HCPCS: 36415; 84153

== ENCOUNTER → 2023-10-09 14:16 | Outpatient (BNVA) | payer MEDICARE, OTHER, SELFPAY | PROVIDERS: PCP Nurse Practitioner Adult Health; Visit Provider Urology | DX: C61 Malignant neoplasm of prostate (principal); R35.0 Frequency of micturition | CPT/HCPCS: 51798; 81003; 99214 ==

== ENCOUNTER 2023-11-01 19:31 | Outpatient (CLI) | payer MEDICARE, OTHER, SELFPAY ==
[2023-11-01 16:00] LABS: HCT 34.5 % (40.0-50.0); HGB 11.4 g/dL (13.5-17.5); MCH 29.8 pg (27.0-33.0); MCV 90 fL (80-95); Platelet Count 176 10^3/uL (130-400); RBC 3.83 10^6/uL (4.36-5.78); RDW 13.1 % (11.8-14.1); RDW-SD 43.5 fL
[2023-11-01 16:29] LABS: Anion Gap 6.8 mmol/L (3-11); BUN 32 mg/dL (7-18); CO2 27.2 mmol/L (21.0-32.0); CREATININE 1.5 mg/dL (0.70-1.30); Calcium 9.1 mg/dL (8.5-10.1); Chloride 103 mmol/L (98-107); Estimated GFR 46.48 (mL/min/1.73m2); Glucose 95 mg/dL (74-106); Potassium 4.5 mmol/L (3.5-5.1); Sodium 137 mmol/L (136-145); TSH (W/Ref FT4) 2.32 uIU/mL (0.36-3.74)
== END 2023-11-01 19:32 | disposition home or self-care (01) ==
LOC: LBO 19:32
PROVIDERS: PCP Nurse Practitioner Adult Health; Visit Provider Nurse Practitioner Adult Health
DX: N18.31 Chronic kidney disease, stage 3a (principal); F51.01 Primary insomnia; F41.1 Generalized anxiety disorder
CPT/HCPCS: 36415; 80048; 85027; 84443

== ENCOUNTER 2023-11-07 10:51 | Outpatient (CLI) | payer MEDICARE, OTHER, SELFPAY ==
[2023-11-07 10:57] VITALS: BP 133/78; PULSE 55; RESP 20; TEMP 36.5; O2SAT 99
--- NOTE | 2023-11-07 11:52 | DI.RAD_ITS ---
Exam(s) XR PAIN CLINIC LUMBAR SP 2V EXAM: XR PAIN CLINIC LUMBAR SP 2V CLINICAL HISTORY: Lumbar radiculopathy TECHNIQUE: 2D and realtime digital imaging was performed. CONTRAST MATERIAL: Refer to procedure report. COMPARISON: No exams were available for comparison FINDINGS: Fluoroscopy was provided for Dr. Nation during the performance of a lumbar epidural steroid injection. Please refer to the procedure report for complete details. Ka,r=3.7 mGy IMPRESSION: RADIATION DOSE DELIVERED: 0.0 0.0 0
[2023-11-07 11:57] VITALS: BP 140/86; PULSE 63; RESP 17; O2SAT 98
[2023-11-07] MEDS: Epidural Tray 1 EACH MC (11:58)
[2023-11-07] MEDS: methylPREDNISolone ACETATE 80 MG/ML VIAL IJ (11:58)
[2023-11-07] MEDS: Omnipaque 240 MG/ML 50 ML BTL IJ (11:58)
--- NOTE | 2023-11-07 12:12 | PDOC.PAIN ---
US Guided Injections Referral Patient has been referred to the [facility] for Bursa Injection for a chief complaint of
--- NOTE | 2023-11-08 08:53 | PDOC.PAIN ---
Date of service: 11/07/23 Time of Service: 12:00 Pain Managment Procedure Note Procedure Note Procedure Note: PROCEDURE NOTE LUMBAR EPIDURAL STEROID INJECTION Date of Service: November 07, 2023 Patient:Levon nAton? Provider: Jameel Nation DO, MPH Levon Carter has been referred to the [facility] for a lumbar epidural steroid injection. Pre-operative diagnosis: Lumbosacral Radiculopathy Post-operative diagnosis: Same Pre-Procedure Pain: VAS= 6 /10 Comments: He had >50% pain improvement for >3 months with his last LESI on 07/12/23. Levon was interviewed and the medical record was reviewed.? There were no medical, pharmacologic, radiographic or other structural contraindications to attempting fluoroscopically guided Lumbar epidural steroid injection.? Risks, potential side effects, indications, and potential benefits of the procedure were reviewed with Levon.? Questions and concerns were addressed.? After it was clear that Levon was fully informed about the procedure, the printed consent form was signed by the patient and myself.? Levon was placed in the prone position on the fluoroscopy table and automated blood pressure cuff and pulse oximeter applied. The skin entry point for entering/approaching the epidural space for the lumbar epidural steroid injection was marked. Following thorough chlorhexadine preparation of the skin and draping and 1% lidocaine infiltration of the skin entry point and subcutaneous tissues, an 18 gauge Touhy needle was placed and advanced under fluoroscopic guidance and with loss of resistance technique into the L5-S1 epidural space. Needle tip placement and depth were aided and confirmed by fluoroscopy. There was no paresthesia or return of blood or CSF through the needle. 1 mls of Omnipaque 240 was injected with clear epidural spread confirmed with fluoroscopy. 80 mg of Depo-Medrol was? injected. This was followed by 1 ml of preservative-free normal saline to flush the steroid out of the needle. There was no unusual discomfort expressed by Levon. The needle was withdrawn without difficulty. (49 mls of Omnipaque was wasted) Levon was observed and was without hemodynamic, neurologic, or allergic reactions.? Fluoroscopic images were digitally archived. Levon's vital signs were stable throughout the procedure and were as recorded in nursing records. Follow up plans and appointments were discussed with Levon. Post procedure instruction was given as documented in nursing records and having met discharge criteria Levon was discharged from the [facility]. COMMENTS: No apparent complications. Post-procedure pain: VAS= 1/10. Levon to contact [facility] as needed. If at least 50% improvement in pain and/or function for at least 3 months is achieved, this procedure can be repeated. I personally performed this entire procedure. JAMEEL NATION DO, MPH ABPMR-subspecialty board certification in Pain Medicine [facility]
== END 2023-11-07 10:52 | disposition home or self-care (01) ==
LOC: PC 10:51
PROVIDERS: PCP Nurse Practitioner Adult Health; Visit Provider Preventive Medicine Occupational Medicine
DX: M54.50 Low back pain, unspecified (principal); M54.17 Radiculopathy, lumbosacral region
CPT/HCPCS: 62323; 72100; J1010; Q9967

== ENCOUNTER → 2023-11-15 10:14 | Outpatient (BNVA) | payer MEDICARE, OTHER, SELFPAY | PROVIDERS: PCP Nurse Practitioner Adult Health; Referring Provider Nurse Practitioner Adult Health; Visit Provider Urology | DX: N40.1 Benign prostatic hyperplasia with lower urinary tract symptoms (principal); N39.44 Nocturnal enuresis; R35.0 Frequency of micturition; C61 Malignant neoplasm of prostate | CPT/HCPCS: 99443 ==

== ENCOUNTER 2023-11-20 16:26 | Outpatient (CLI) | payer MEDICARE, OTHER, SELFPAY ==
[2023-11-20 09:35] LABS: Abs Immature Grans 0.03 10^3/uL (0.0-0.06); Absolute Basophil Count 0.02 10^3/uL (0.0-0.2); Absolute Eosinophil Count 0.24 10^3/uL (0.0-0.7); Absolute Lymphocyte Count 1.56 10^3/uL (1.2-3.4); Absolute Monocyte Count 0.43 10^3/uL (0.1-0.8); Absolute Neutrophil Count 3.13 10^3/uL (1.2-6.7); Basophils % 0.4 %; Eosinophils % 4.4 %; HCT 36.8 % (40.0-50.0); HGB 12.1 g/dL (13.5-17.5); Immature Grans % 0.6 %; Lymphocytes % 28.8 %; MCH 30.2 pg (27.0-33.0); MCHC 32.9 % (32.0-36.0); MCV 92 fL (80-95); MPV 9.4 fL (8.0-11.0); Monocytes % 7.9 %; Neutrophils % 57.9 %; Platelet Count 178 10^3/uL (130-400); RBC 4.01 10^6/uL (4.36-5.78); RDW 13.6 % (11.8-14.1); RDW-SD 46.2 fL; Reticulocyte 1.4 % (0.5-2.4); WBC 5.41 10^3/uL (4.4-10.8)
[2023-11-20 10:27] LABS: Anion Gap 5.6 mmol/L (3-11); BUN 25 mg/dL (7-18); CO2 29.4 mmol/L (21.0-32.0); CREATININE 1.3 mg/dL (0.70-1.30); Chloride 104 mmol/L (98-107); Creatine Kinase 106 U/L (39-308); Estimated GFR 54.85 (mL/min/1.73m2); Ferritin 187 ng/mL (26-388); Folate 8.5 ng/mL (8.6-20.0); Glucose 86 mg/dL (74-106); Potassium 4.2 mmol/L (3.5-5.1); Sodium 139 mmol/L (136-145); Vitamin B12 300 pg/mL (193-986)
[2023-11-20 10:51] LABS: Iron 102 ug/dL (65-175); Total Iron Binding Capacity 304 ug/dL (250-450); Transferrin Sat 34 % (20-55)
== END 2023-11-20 16:27 | disposition home or self-care (01) ==
LOC: LBO 16:28
PROVIDERS: PCP Nurse Practitioner Adult Health; Visit Provider Nurse Practitioner Adult Health
DX: D64.9 Anemia, unspecified (principal); Z13.1 Encounter for screening for diabetes mellitus; R29.898 Other symptoms and signs involving the musculoskeletal system
CPT/HCPCS: 36415; 80048; 82550; 82607; 82728; 82746; 83540; 83550; 85025; 85045

== ENCOUNTER 2023-12-31 16:02 | Outpatient (CLI) | payer MEDICARE, OTHER, SELFPAY ==
[2024-01-01 21:32] LABS: PSA, Diagnostic 0.3 ng/mL (<=6.5)
== END 2023-12-31 16:03 | disposition home or self-care (01) ==
LOC: LBO 16:03
PROVIDERS: PCP Nurse Practitioner Adult Health; Visit Provider Urology
DX: C61 Malignant neoplasm of prostate (principal)
CPT/HCPCS: 36415; 84153

== ENCOUNTER → 2024-02-08 08:25 | Outpatient (BNVA) | payer MEDICARE, OTHER, SELFPAY | PROVIDERS: PCP Nurse Practitioner Adult Health; Referring Provider Nurse Practitioner Adult Health; Visit Provider Urology | DX: C61 Malignant neoplasm of prostate (principal) | CPT/HCPCS: 99213 ==

== ENCOUNTER 2024-02-08 09:33 | Outpatient (CLI) | payer MEDICARE, OTHER, SELFPAY ==
[2024-02-08 09:52] LABS: HGB 12.4 g/dL (13.5-17.5); MCH 30.2 pg (27.0-33.0); MCHC 32.6 % (32.0-36.0); MCV 93 fL (80-95); Platelet Count 205 10^3/uL (130-400); RDW 13.2 % (11.8-14.1); RDW-SD 45.3 fL; WBC 5.16 10^3/uL (4.4-10.8)
[2024-02-08 10:31] LABS: Anion Gap 7.3 mmol/L (3-11); BUN 40 mg/dL (7-18); CO2 26.7 mmol/L (21.0-32.0); CREATININE 1.6 mg/dL (0.70-1.30); Calcium 9.3 mg/dL (8.5-10.1); Chloride 105 mmol/L (98-107); Estimated GFR 42.75 (mL/min/1.73m2); Glucose 100 mg/dL (74-106); Potassium 4.1 mmol/L (3.5-5.1); Sodium 139 mmol/L (136-145)
[2024-02-08 10:33] LABS: Folate > 20.0 ng/mL (8.6-20.0)
== END 2024-02-08 09:34 | disposition home or self-care (01) ==
LOC: LBO 09:35
PROVIDERS: PCP Nurse Practitioner Adult Health; Visit Provider Nurse Practitioner Adult Health
DX: E53.8 Deficiency of other specified B group vitamins (principal); D64.9 Anemia, unspecified; N18.31 Chronic kidney disease, stage 3a; C61 Malignant neoplasm of prostate
CPT/HCPCS: 36415; 80048; 85027; 99213; 82746